=== PATIENT | female | born 1960 | race Caucasian/White ===

== ENCOUNTER 2016-03-15 13:13 | Emergency (ER) | payer OTHER, SELFPAY ==
[2016-03-15] MEDS ORDERED: Sodium Chloride 0.9% 1000 ML 1,000 ML IV STA (14:07)
[2016-03-15] MEDS ORDERED: Zofran 4 MG/2 ML VIAL IV ONE (14:07)
[2016-03-15 14:15] LABS: Collection Type CLEAN CATCH
[2016-03-15] MEDS ORDERED: Zofran 4 MG/2 ML VIAL ONE (14:15)
[2016-03-15] MEDS ORDERED: Sodium Chloride 0.9% 1000 ML 1,000 ML ONE (14:15)
--- NOTE | 2016-03-15 14:15 | ERPHSYRPT ---
- History of Present Illness Time Seen by Provider: 03/15/16 13:20 Historian: patient Exam Limitations: clinical condition Patient Subjective Stated Complaint: RIGHT SIDED ABD PAIN AND FLANK PAIN. BEEN GOING ON FOR ABOUT 3 MONTHS. WHEN PT STANDS PAIN SUBSIDES. Triage Nursing Assessment: ALERT X 3, BELLY TENDER WITGH PAPILATION ON RIGHT SIDE. Physician History: PATIENT COMPLAINS OF RIGHT LATERAL ABDOMINAL PAINS FOR 3 MONTHS, OCCASIONAL NAUSEA. HAD NORMAL ABDOMINAL PELVIC CT SCAN AT [facility] 1 MONTH AGO. DENIES EMESIS, FEVER, OR DIARRHEA. PATIENT IS SCHEDULED FOR COLONOSCOPY LATER THIS MONTH. Timing/Duration: other (MONTHS) Quality: sharpness Abdominal Pain Onset Location: other (RIGHT LATERAL ABDOMINAL PAIN) Severity of Pain-Max: moderate Severity of Pain-Current: moderate Modifying Factors: Improves With: nothing Associated Symptoms: nausea Previous symptoms: same symptoms as today (DURATION 3 MONTHS) Hx Tetanus, Diphtheria Vaccination/Date Given: Yes (2015) Hx Influenza Vaccination/Date Given: Yes (2015) Hx Pneumococcal Vaccination/Date Given: No Immunizations Up to Date: Yes - Review of Systems Constitutional: No Fever, No Chills Eyes: No Symptoms Ears, Nose, & Throat: No Symptoms Respiratory: No Symptoms, No Cough, No Dyspnea Cardiac: No Symptoms, No Chest Pain, No Edema, No Syncope Abdominal/Gastrointestinal: Abdominal Pain (TENDERNESS RIGHT LATERAL ABDOMEN, NO PALPABLE MASSES OR REBOUND TENDERNESS), No Nausea, No Vomiting, No Diarrhea Genitourinary Symptoms: Other (THERE IS NO CVA TENDERNESS), No Dysuria Musculoskeletal: No Symptoms, No Back Pain, No Neck Pain Skin: No Rash Neurological: No Symptoms, No Dizziness, No Focal Weakness, No Sensory Changes Psychological: No Symptoms Endocrine: No Symptoms All Other Systems: Reviewed and Negative - Past Medical History Pertinent Past Medical History: Yes Neurological History: No Pertinent History Cardiac History: Hypertension Respiratory History: No Pertinent History Endocrine Medical History: Hypothyroidism Musculoskeletal History: Arthritis GI Medical History: No Pertinent History History: No Pertinent History Psycho-Social History: No Pertinent History Female Reproductive Disorders: No Pertinent History - Past Surgical History Past Surgical History: No - Social History Smoking Status: Current every day smoker How long have you smoked: 30 Drug Use: none Patient Lives Alone: Yes - Nursing Vital Signs Nursing Vital Signs: Initial Vital Signs Temperature 98.8 F Temperature Source Oral Pulse Rate 54 Respiratory Rate 16 Blood Pressure [Left Arm] 111/47 Pain Intensity 0 - Physical Exam General Appearance: no apparent distress, alert Eye Exam: PERRL/EOMI, eyes nml inspection Ears, Nose, Throat Exam: normal ENT inspection, pharynx normal, moist mucous membranes Neck Exam: normal inspection, non-tender, supple, full range of motion Respiratory Exam: normal breath sounds, lungs clear, No respiratory distress Cardiovascular Exam: regular rate/rhythm, normal heart sounds Gastrointestinal/Abdomen Exam: soft, normal bowel sounds, No tenderness (RIGHT LATERAL ABDOMEN, NO GUARDING OR REBOUND TENDERNESS), No mass Back Exam: normal inspection, normal range of motion, No CVA tenderness, No vertebral tenderness Extremity Exam: normal inspection, normal range of motion, pelvis stable Neurologic Exam: alert, oriented x 3, cooperative, normal mood/affect, nml cerebellar function, sensation nml, No motor deficits Skin Exam: normal color, warm, dry SpO2 Interpretation: normal SpO2: 95 Oxygen Delivery: Room Air Ordered Tests: Active Orders 24 hr Category Date Time Status Clean Catch Urine Specimen STAT Care 03/15/16 14:07 Active IV Insertion STAT Care 03/15/16 14:07 Active AMYLASE Stat Lab 03/15/16 14:15 Completed CBC W DIFF Stat Lab 03/15/16 14:15 Completed CMP Stat Lab 03/15/16 14:15 Completed LIPASE Stat Lab 03/15/16 14:15 Completed UA W/ MICROSCOPIC Stat Lab 03/15/16 14:08 Completed Medication Summary Generic Name Dose Route Start Last Admin Trade Name Freq PRN Reason Stop Dose Admin Sodium Chloride 1,000 mls @ 250 mls/hr 03/15/16 14:07 03/15/16 14:18 Sodium Chloride 0.9% 1000 Ml IV 03/15/16 18:06 250 mls/hr .Q4H STA Administration Discontinued Medications Generic Name Dose Route Start Last Admin Trade Name Freq PRN Reason Stop Dose Admin Sodium Chloride Confirm 03/15/16 14:15 Sodium Chloride 0.9% 1000 Ml Administered 03/15/16 14:16 Dose 1,000 mls @ ud .ROUTE .STK-MED ONE Ceftriaxone Sodium/Dextrose 50 mls @ 100 mls/hr 03/15/16 14:34 03/15/16 14:37 Rocephin 1 Gm-D5w 50 Ml Bag IV 03/15/16 15:03 100 mls/hr STAT ONE Administration Ceftriaxone Sodium/Dextrose Confirm 03/15/16 14:37 Rocephin 1 Gm-D5w 50 Ml Bag Administered 03/15/16 14:38 Dose 50 mls @ ud IV .STK-MED ONE Ondansetron HCl 4 mg 03/15/16 14:07 03/15/16 14:18 Zofran 4 Mg/2 Ml Vial IV 03/15/16 14:08 4 mg STAT ONE Administration Ondansetron HCl Confirm 03/15/16 14:15 Zofran 4 Mg/2 Ml Vial Administered 03/15/16 14:16 Dose 4 mg .ROUTE .STK-MED ONE Lab/Rad Data: Laboratory Result Diagrams 03/15/16 14:15 03/15/16 14:15 Laboratory Results 03/15/16 03/15/16 03/15/16 Range/Units 14:15 14:15 14:08 WBC 11.6 H (4.0-10.5) K/mm3 RBC 4.65 (4.1-5.4) M/mm3 Hgb 13.1 (12.0-16.0) gm/dl Hct 41.8 (35-47) % MCV 89.9 (78-100) fl MCH 28.2 (26-32) pg MCHC 31.3 L (32-36) g/dl RDW 14.6 H (11.5-14.0) % Plt Count 370 (150-450) K/mm3 MPV 10.4 H (6-9.5) fl Gran % 67.3 H (36.0-66.0) % Lymphocytes % 22.9 L (24.0-44.0) % Monocytes % 5.8 (0.0-12.0) % Eosinophils % 3.5 (0.00-5.0) % Basophils % 0.5 (0.0-0.4) % Basophils # 0.06 (0-0.4) Sodium 138 (136-145) mEq/L Potassium 4.1 (3.5-5.1) mEq/L Chloride 102 (98-107) mEq/L Carbon Dioxide 27.5 (21-32) mEq/L Anion Gap 12.6 (5-15) MEQ/L BUN 9 (9-20) mg/dL Creatinine 0.94 (0.55-1.30) mg/dl Estimated GFR > 60 ML/MIN Glucose 92 (70-110) MG/DL Calcium 8.7 (8.5-10.1) mg/dL Total Bilirubin 0.3 (0.2-1.0) mg/dL AST 10 L (15-37) U/L ALT 11 L (12-78) U/L Alkaline Phosphatase 137 H (46-116) U/L Serum Total Protein 7.7 (6.4-8.2) gm/dL Albumin 3.3 L (3.4-5.0) g/dL Amylase 55 (25-115) U/L Lipase 120 (73-393) U/L Ur Collection Type CLEAN CATCH Urine Color YELLOW (YELLOW) Urine Appearance SLIGHTLY CLOUDY (CLEAR) Urine pH 7.0 (5-6) Ur Specific [place] 1.015 (1.005-1.025) Urine Protein NEGATIVE (Negative) Urine Glucose (UA) NEGATIVE (NEGATIVE) mg/dL Urine Ketones NEGATIVE (NEGATIVE) Urine Nitrite NEGATIVE (NEGATIVE) Urine Bilirubin NEGATIVE (NEGATIVE) Urine Urobilinogen 0.2 (0-1) mg/dL Urine WBC (Auto) MODERATE (NEGATIVE) Urine RBC (Auto) TRACE-LYSED (0-5) Chaz/ul Urine Microscopic RBC 0-2 (0-2) /HPF Urine Microscopic WBC 15-25 (0-5) /HPF Ur Epithelial Cells MANY (FEW) /HPF Urine Bacteria MANY (NEGATIVE) /HPF Specimen Received 03/15/16 1400 - Progress Progress: pain not gone completely Progress Note: 03/15/16 14:14 PATIENT ADMINISTERED IV NORMAL SALINE 250ML/HR, ZOFRAN 4MG, TORADOL 30MG IV 03/15/16 15:30 ROCEPHIN 1GM IVPB FOR TX OF URINARY TRACT INFECTION Counseled pt/family regarding: lab results, diagnosis, need for follow-up - Departure Time of Disposition: 15:40 Departure Disposition: Home Clinical Impression: URINARY TRACT INFECTION Condition: Stable Critical Care Time: No Additional Instructions: ANTIBIOTIC BACTRIM DS TWICE DAILY FOR 10 DAYS. PYRIDIUM 100MG AFTER MEALS FOR 2 DAYS. ULTRAM 50MG EVERY 4 HOURS FOR PAIN. CONSULT YOUR FAMILY PHYSICIAN FOR EVALUATION IN 1 WEEK. Prescriptions: Phenazopyridine HCl [Pyridium] 100 mg PO AC #6 tablet Sulfamethoxazole/Trimethoprim [Bactrim Ds Tablet] 1 each PO BID #20 tablet Tramadol HCl 50 mg [Ultram 50 mg] 50 mg PO Q4-6HPRN PRN #15 tablet PRN Reason: Pain
[2016-03-15 14:16] LABS: Bacteria MANY /HPF (NEGATIVE); COMPLETE URINE MICROSCOPIC? YES; Epithelial Cells MANY /HPF (FEW); WBC 15-25 /HPF (0-5)
[2016-03-15 14:27] LABS: BASOPHIL % 0.5 % (0.0-0.4); Eosinophil % 3.5 % (0.00-5.0); Granulocytes % 67.3 % (36.0-66.0); Lymphocytes % 22.9 % (24.0-44.0); Mean Cell Volume 89.9 fl (78-100); Mean Corpuscular Hemoglobin 28.2 pg (26-32); Mean Platelet Volume 10.4 fl (6-9.5); Monocytes % 5.8 % (0.0-12.0); Platelet Count 370 K/mm3 (150-450); Red Blood Count 4.65 M/mm3 (4.1-5.4); Red Cell Distribution Width 14.6 % (11.5-14.0); White Blood Count 11.6 K/mm3 (4.0-10.5)
[2016-03-15] MEDS ORDERED: ROCEPHIN 1 Gm-D5w 50 ml Bag** 50 ML IV ONE ×2 (14:34→14:37)
[2016-03-15 14:49] LABS: ALBUMIN 3.3 g/dL (3.4-5.0); ALKALINE PHOSPHATASE 137 U/L (46-116); ANION GAP 12.6 MEQ/L (5-15); BILIRUBIN,TOTAL 0.3 mg/dL (0.2-1.0); BLOOD UREA NITROGEN 9 mg/dL (9-20); CHLORIDE 102 mEq/L (98-107); Carbon Dioxide 27.5 mEq/L (21-32); Glucose 92 MG/DL (70-110); LIPASE 120 U/L (73-393); Potassium 4.1 mEq/L (3.5-5.1); SGOT/AST 10 U/L (15-37); SGPT/ALT 11 U/L (12-78); SODIUM 138 mEq/L (136-145); Total Protein 7.7 gm/dL (6.4-8.2)
[2016-03-15 15:43] VITALS: BP 134/70; PULSE 78; O2SAT 100
== END 2016-03-15 15:43 | disposition home or self-care (01) ==
LOC: ED 13:13
DX: N39.0 Urinary tract infection, site not specified (principal); R10.9 Unspecified abdominal pain; R11.0 Nausea
CPT/HCPCS: 36000; 36415; 80053; 81000; 82150; 83690; 85025; 96360; 96361; 96365; 96374; 99283; J0696; J2405

== ENCOUNTER 2016-04-20 10:16 | Day surgery (SDC) | payer OTHER ==
--- NOTE | 2016-04-19 08:08 | HP ---
DATE OF SURGERY: 04/20/2016 ADMISSION DIAGNOSIS: Chronic constipation. ANTICIPATED PROCEDURE: HISTORY OF PRESENT ILLNESS: A 55 year-old with no colonoscopy to date. Right lower quadrant pain. PAST MEDICAL HISTORY: ALLERGIES: PENICILLIN, SULFA. MEDICATIONS: Blood pressure, thyroid. PAST SURGICAL HISTORY: None. SOCIAL HISTORY: One pack per day. ETOH negative. FAMILY HISTORY: Negative. REVIEW OF SYSTEMS: Chronic right lower quadrant pain. PHYSICAL EXAMINATION: VITAL SIGNS: Normal. CHEST: Clear. COR: Regular. ABDOMEN: No palpable organomegaly or mass. IMPRESSION: Colonoscopy for constipation and change in bowel habit.
[~2016-04-20 10:16] MED LIST: DEMEROL 50 MG IV ONE; Sodium Chloride 0.9% 1000 ML 1,000 ML IV SCH; VERSED 5 MG/5 ML IV ONE
[2016-04-20] MEDS ORDERED: Sodium Chloride 0.9% 1000 ML 1,000 ML ONE (10:20)
[2016-04-20] MEDS ORDERED: TYLENOL EXTRA STRENGTH 500 MG PO PRN (11:57)
[2016-04-20] MEDS ORDERED: Lactated Ringers 1,000 ML IV ONE (14:40)
[2016-04-20 15:47] VITALS: BP 112/59; PULSE 62; O2SAT 93
--- NOTE | 2016-04-21 08:09 | OP ---
SURGERY DATE: 04/20/16 SURGERY TIME: 1340 PREOPERATIVE DIAGNOSIS: 1. SCREENING. 2. CONSTIPATION. 3. RIGHT LOWER QUADRANT DISCOMFORT. POSTOPERATIVE DIAGNOSIS: 1. GROSSLY NORMAL. PROCEDURE: 1. Colonoscopy complete to cecum. SURGEON: Gordon Nova M.D. ANESTHESIA: IV sedation. PREP: 6/9. COMPLICATIONS: None. CONDITION: Stable. INDICATION: 55 y/o requiring colonoscopy. Has constipation and some right lower quadrant discomfort. Has never had a colonoscopic examination. Presents for screening. OPERATIVE PROCEDURE: Taken to endoscopy suite. Left lateral decubitus position. After suitable IV sedation was titrated and oximetry was kept over 90%, scope advanced to the cecum. Base of the cecum satisfactory. Ascending, hepatic, transverse, splenic, descending, sigmoid, rectum, and anus satisfactory. There was some stool and the prep was 6/9. It was grossly normal. Not a perfect exam with the prep. PLAN: Follow-up 5 years.
== END 2016-04-20 16:02 | disposition home or self-care (01) ==
LOC: SDC 10:16
PROVIDERS: ATTEND Surgery
PROC: 0DJD8ZZ Inspection of Lower Intestinal Tract, Via Natural or Artificial Opening Endoscopic (ICD-10-PCS; principal; 2016-04-20)
DX: Z12.11 Encounter for screening for malignant neoplasm of colon (principal); K59.00 Constipation, unspecified; R10.31 Right lower quadrant pain
CPT/HCPCS: J2175; J2250

== ENCOUNTER 2016-05-02 13:35 | Emergency (ER) | payer OTHER, SELFPAY ==
[2016-05-02] MEDS ORDERED: DUONEB 0.5-3 MG/3 ml Neb IH ONE ×2 (13:52→14:22)
--- NOTE | 2016-05-02 13:58 | ERPHSYRPT ---
- History of Present Illness Time Seen by Provider: 05/02/16 13:43 Source: patient Patient Subjective Stated Complaint: PT REPORTS HAVING A COLOSTOMY 2 WKS AGO- SINCE THEN HAS LOW RIGHT ABD PAIN ET SOB-DENIES CHANGES IN S/S-STATES THAT SHE HAS A PRODUCTIVE COUGH Triage Nursing Assessment: PT PINK WARM ET DRY-TALKATIVE WITH NO RETRACTIONS ET NO DIFFICULTY NOTED-EXPATORY WHEEZES NOTED TO RIGHT LUNG Physician History: CC: cough hx: 55 y/o patient of [facility]. She is a smoker. She has cough, some wheezing, congestion. She had recent colonoscopy last week per Dr Nova. She has chronic RLQ abd pain. She has appt at [facility]'s Sunday. Came today due to her cough. No fever or chills. She has malaise. Timing/Duration: day(s) (few) Allergies/Adverse Reactions: penicillin G Allergy (Intermediate, Verified 05/02/16 13:47) CAN'T MOVE Sulfa (Sulfonamide Antibiotics) Allergy (Intermediate, Verified 05/02/16 13:47) Hives Home Medications: Bisoprolol Fumarate/Hctz [Bisoprolol-Hctz 10-6.25 mg Tab] 1 each PO DAILY [History] Levothyroxine Sodium 50 Mcg [Synthroid 50 Mcg] 50 mcg PO DAILY 05/02/16 [ History] Hx Tetanus, Diphtheria Vaccination/Date Given: Yes (2015) Hx Influenza Vaccination/Date Given: Yes (2015) Hx Pneumococcal Vaccination/Date Given: No Immunizations Up to Date: Yes - Review of Systems Constitutional: Malaise, No Fever, No Chills Eyes: No Symptoms Respiratory: Cough Cardiac: No Chest Pain Abdominal/Gastrointestinal: Abdominal Pain (chronic RLQ), No Nausea, No Vomiting Skin: No Rash Neurological: No Headache - Past Medical History Pertinent Past Medical History: Yes Neurological History: No Pertinent History ENT History: No Pertinent History Cardiac History: Hypertension Respiratory History: No Pertinent History Endocrine Medical History: Hypothyroidism Musculoskeletal History: Arthritis GI Medical History: Ulcer History: No Pertinent History Psycho-Social History: No Pertinent History Female Reproductive Disorders: No Pertinent History - Past Surgical History Past Surgical History: No Neuro Surgical History: No Pertinent History Cardiac: No Pertinent History Respiratory: No Pertinent History Gastrointestinal: No Pertinent History Genitourinary: No Pertinent History Musculoskeletal: No Pertinent History Female Surgical History: Other Other Surgical History: bartholins cyst excision - Social History Smoking Status: Current every day smoker How long have you smoked: 30 Exposure to second hand smoke: Yes Drug Use: none Patient Lives Alone: No - Nursing Vital Signs Nursing Vital Signs: Initial Vital Signs Temperature 98.2 F Temperature Source Oral Pulse Rate 59 Respiratory Rate 16 Blood Pressure [Right Arm] 156/93 Pain Intensity 7 - Physical Exam General Appearance: alert Eye Exam: PERRL/EOMI Ears, Nose, Throat Exam: normal ENT inspection, moist mucous membranes Neck Exam: normal inspection, non-tender, supple Respiratory Exam: rhonchi, wheezing (scattered) Cardiovascular Exam: regular rate/rhythm Gastrointestinal/Abdomen Exam: soft, other (mild discomfort, no point tenderness , no mass), No distention Back Exam: normal inspection Extremity Exam: normal inspection, normal range of motion Neurologic Exam: alert, oriented x 3, cooperative Skin Exam: warm, dry, No rash SpO2 Interpretation: normal SpO2: 96 Oxygen Delivery: Room Air - Course Nursing assessment & vital signs reviewed: Yes - Radiology Exams cxr X-ray Interpretation: Teleradiologist Report, Negative abd X-ray Interpretation: Teleradiologist Report, Negative Ordered Tests: Active Orders 24 hr Category Date Time Status ABDOMEN 2 VIEW Stat Exams 05/02/16 13:53 Taken CHEST 2 VIEWS (PA AND LAT) Stat Exams 05/02/16 13:52 Taken Respiratory Nebulizer STAT RT 05/02/16 13:53 Completed Medication Summary Discontinued Medications Generic Name Dose Route Start Last Admin Trade Name Freq PRN Reason Stop Dose Admin Albuterol/Ipratropium 3 ml 05/02/16 13:52 05/02/16 14:26 Duoneb 0.5-3 Mg/3 Ml Neb IH 05/02/16 13:53 3 ml STAT ONE Administration Albuterol/Ipratropium Confirm 05/02/16 14:22 Duoneb 0.5-3 Mg/3 Ml Neb Administered 05/02/16 14:23 Dose 3 ml IH .STK-MED ONE - Progress Progress Note: 05/02/16 14:33 PT stable. Advised smoking cessation. Rx for asthmatic bronchitis. She will follow up at [facility]. Counseled pt/family regarding: diagnosis, need for follow-up, rad results, smoking cessation - Departure Time of Disposition: 14:33 Departure Disposition: Home Clinical Impression: Acute asthmatic bronchitis Condition: Stable Critical Care Time: No Referrals: NIC FULLER, BUSINESS ANALYST INTERN [Primary Care Provider] - Instructions: Quit Smoking, Bronchitis Additional Instructions: UPPER RESPIRATORY INFECTIONS 1. The signs and symptoms of a cold may last up to 10 days. These illnesses are due to viruses which are not treatable with antibiotics. 2. The following suggestions can aid in recovery and to minimize symptoms: A. Increase fluid intake. B. Acetaminophen or Ibuprofen as directed. C. Avoid smoking environments as this will increase the risk of developing pneumonia. D. For children, may use a cool mist vaporizer in the child's room. 3. Contact your Family Physician if you note: A. Persisten fever >103 for more than 3 days B. Breathing difficulty C. Productive cough of yellow/green sputum D. Illness greater than 7 days E. Persistent vomiting F. Stiff neck Rx prednisone. Rx albuterol. Rx doxycycline. Keep appointment Sunday at [facility]. Prescriptions: Albuterol Sulfate [Albuterol Sulfate Hfa] 2 puff IH Q4-6HPRN PRN #1 [email or web address] PRN Reason: cough or wheeze Doxycycline Hyclate [Vibramycin] 1 cap PO BID #20 capsule Prednisone 20 mg [Deltasone 20 mg] 2 tab PO DAILY #10 tablet
--- NOTE | 2016-05-02 14:34 | XRAY ---
Indication: Abdominal pain. Post-colonoscopy. Comparison: None 2 views of the abdomen nonacute and nonobstructed. No free air. Solid organs and osseous structures unremarkable.
--- NOTE | 2016-05-02 14:37 | XRAY ---
Indication: Cough. Abdominal pain. Post colonoscopy. Comparison: None PA/lateral chest demonstrates normal heart, lungs, and bony thorax.
[2016-05-02 14:41] VITALS: BP 139/76; PULSE 55; O2SAT 95
== END 2016-05-02 14:47 | disposition home or self-care (01) ==
LOC: ED 13:35
DX: J45.909 Unspecified asthma, uncomplicated (principal); R05 Cough; R53.81 Other malaise; F17.200 Nicotine dependence, unspecified, uncomplicated
CPT/HCPCS: 71020; 74020; 94640; 99284; A9270-GY

== ENCOUNTER 2017-09-28 18:46 | Emergency (ER) | payer OTHER, SELFPAY ==
--- NOTE | 2017-09-28 19:49 | ERPHSYRPT ---
- History of Present Illness Time Seen by Provider: 09/28/17 19:43 Source: patient Exam Limitations: no limitations Patient Subjective Stated Complaint: states has increased swelling to bilat lower legs. also having pain in left shoulder, left lower abd and right hip. Triage Nursing Assessment: ambulated to room per self. skin w/d, color normal, resp easy. 2+ edema noted to lower legs. denies any injury Physician History: The patient is a 57-year-old obese female with a friend complaining that her right hip has been hurting more so for the past 3 days. Today when she got up this afternoon, it hurt more than it has in the past. The pain has lessened this evening. The pain actually started before last June when she had a hysterectomy. She thought the hysterectomy would help her pain. She has other complaints that are already being addressed by her senior java programmer analyst. She has been retaining fluid with swelling of her lower legs. She called her senior java programmer analyst this morning and was told to increase her "water pills". She will do that this evening. She denies fever or chills. She denies nausea or vomiting. She denies trauma. She has been prescribed metformin but does not take it routinely. Her past medical history is significant for congestive heart failure , hypertension, hypothyroidism, and diabetes. Timing/Duration: day(s) (3), worse Severity: moderate Modifying Factors: Improves With: movement Associated Symptoms: abdominal pain Allergies/Adverse Reactions: penicillin G Allergy (Intermediate, Verified 09/28/17 19:02) CAN'T MOVE Sulfa (Sulfonamide Antibiotics) Allergy (Intermediate, Verified 09/28/17 19:02) Hives Home Medications: Bisoprolol/Hydrochlorothiazide [Bisoprolol-Hctz 10-6.25 mg Tab] 1 each PO DAILY 05/02/16 [History] Levothyroxine Sodium 50 Mcg [Synthroid 50 Mcg] 50 mcg PO DAILY 05/02/16 [ History] Carvedilol 3.125 mg [Coreg 3.125 MG] 3.125 mg PO BID 09/28/17 [History] Lisinopril [Zestril] 5 mg PO DAILY 09/28/17 [History] Hx Tetanus, Diphtheria Vaccination/Date Given: Yes Hx Influenza Vaccination/Date Given: Yes Hx Pneumococcal Vaccination/Date Given: No - Review of Systems Constitutional: No Fever, No Chills Eyes: No Symptoms Ears, Nose, & Throat: No Symptoms Respiratory: No Cough, No Dyspnea Cardiac: Edema, No Chest Pain, No Syncope Abdominal/Gastrointestinal: Abdominal Pain, No Nausea, No Vomiting, No Diarrhea Genitourinary Symptoms: No Dysuria Musculoskeletal: Joint Pain Skin: No Rash Neurological: No Dizziness, No Focal Weakness, No Sensory Changes Psychological: No Symptoms Endocrine: No Symptoms Hematologic/Lymphatic: No Symptoms Immunological/Allergic: No Symptoms All Other Systems: Reviewed and Negative - Past Medical History Pertinent Past Medical History: Yes Neurological History: No Pertinent History ENT History: No Pertinent History Cardiac History: Hypertension Respiratory History: No Pertinent History Endocrine Medical History: Hypothyroidism Musculoskeletal History: Arthritis GI Medical History: Ulcer History: No Pertinent History Psycho-Social History: No Pertinent History Female Reproductive Disorders: No Pertinent History - Past Surgical History Past Surgical History: Yes Neuro Surgical History: No Pertinent History Cardiac: No Pertinent History Respiratory: No Pertinent History Gastrointestinal: No Pertinent History Genitourinary: No Pertinent History Musculoskeletal: No Pertinent History Female Surgical History: Hysterectomy, Other Other Surgical History: bartholins cyst excision - Social History Smoking Status: Current every day smoker How long have you smoked: 42 Exposure to second hand smoke: Yes Drug Use: none Patient Lives Alone: No - Female History Hx Now: No - Nursing Vital Signs Nursing Vital Signs: Initial Vital Signs Temperature 97.7 F 09/28/17 18:51 Pulse Rate 64 09/28/17 18:51 Respiratory Rate 20 09/28/17 18:51 Blood Pressure 116/79 09/28/17 18:51 Pain Scale Pain Intensity 10 - Physical Exam General Appearance: no apparent distress, alert Eye Exam: PERRL/EOMI, eyes nml inspection Ears, Nose, Throat Exam: normal ENT inspection, TMs normal, pharynx normal, moist mucous membranes Neck Exam: normal inspection, non-tender, supple, full range of motion Respiratory Exam: normal breath sounds, lungs clear, No respiratory distress Cardiovascular Exam: regular rate/rhythm, normal heart sounds, normal peripheral pulses Gastrointestinal/Abdomen Exam: tenderness (RLQ, right flank) Pelvic Exam: not done Rectal Exam: not done Back Exam: normal inspection, normal range of motion, No CVA tenderness, No vertebral tenderness Extremity Exam: pedal edema Neurologic Exam: alert, oriented x 3, cooperative, normal mood/affect, nml cerebellar function, nml station & gait, sensation nml, No motor deficits Skin Exam: normal color, warm, dry, No rash Lymphatic Exam: No adenopathy SpO2 Interpretation: normal Oxygen Delivery: Room Air - Radiology Exams Abdomen X-ray Interpretation: Reviewed by me, Teleradiologist Report (per Dr Frank), Negative, Other (moderate scattered colonic fecal debris) Right Hip X-ray Interpretation: Reviewed by me, Teleradiologist Report (per Dr Frank), No Fracture, No Subluxation, Other (tiny right femur head bone island.) - CT Exams Abdomen/Pelvis CT Interpretation: Tele-radiologist Report (per Dr Lagunas), Normal Appendix, Other (bilateral symmetric sacroiliitis; moderate amount of retained colonic stool.) Ordered Tests: Active Orders 24 hr Category Date Time Status Clean Catch Urine Specimen STAT Care 09/28/17 19:51 Active ABDOMEN AND PELVIS W/0 CONTRAS [CT] Stat Exams 09/28/17 22:40 Taken HIP UNI (2V) INCL PEL IF DONE Stat Exams 09/28/17 19:52 Completed KUB Stat Exams 09/28/17 19:51 Completed CBC W DIFF Stat Lab 09/28/17 20:00 Completed CMP Stat Lab 09/28/17 20:00 Completed LIPASE Stat Lab 09/28/17 20:00 Completed UA W/RFX UR CULTURE Stat Lab 09/28/17 21:59 Completed Medication Summary Discontinued Medications Generic Name Dose Route Start Last Admin Trade Name Freq PRN Reason Stop Dose Admin Ketorolac Tromethamine 60 mg 09/28/17 19:52 09/28/17 21:03 Toradol 30 Mg Injection IM 09/28/17 19:53 30 mg STAT ONE Administration Ketorolac Tromethamine Confirm 09/28/17 21:01 Toradol 30 Mg Injection Administered 09/28/17 21:02 Dose 30 mg .ROUTE [email or web address] Lab/Rad Data: Laboratory Result Diagrams 09/28/17 20:00 09/28/17 20:00 Laboratory Results 09/28/17 09/28/17 09/28/17 Range/Units 21:59 20:00 20:00 WBC 11.5 H (4.0-10.5) K/mm3 RBC 4.54 (4.1-5.4) M/mm3 Hgb 13.3 (12.0-16.0) gm/dl Hct 40.8 (35-47) % MCV 89.9 (78-100) fl MCH 29.3 (26-32) pg MCHC 32.6 (32-36) g/dl RDW 14.8 H (11.5-14.0) % Plt Count 359 (150-450) K/mm3 MPV 10.7 H (6-9.5) fl Gran % 59.3 (36.0-66.0) % Eos # (Auto) 0.50 (0-0.5) Absolute Lymphs (auto) 3.20 (1.0-4.6) Absolute Monos (auto) 0.91 (0.0-1.3) Lymphocytes % 27.9 (24.0-44.0) % Monocytes % 7.9 (0.0-12.0) % Eosinophils % 4.4 (0.00-5.0) % Basophils % 0.5 (0.0-0.4) % Absolute Granulocytes 6.78 (1.4-6.9) Basophils # 0.06 (0-0.4) Sodium 138 (137-145) mmol/L Potassium 4.1 (3.5-5.1) mmol/L Chloride 103 (98-107) mmol/L Carbon Dioxide 27 (22-30) mmol/L Anion Gap 12.3 (5-15) MEQ/L BUN 13 (7-17) mg/dL Creatinine 0.89 (0.52-1.04) mg/dL Estimated GFR > 60.0 ML/MIN Glucose 97 (74-106) mg/dL Calcium 8.8 (8.4-10.2) mg/dL Total Bilirubin 0.20 (0.2-1.3) mg/dL AST 11 L (14-36) U/L ALT 11 (0-35) U/L Alkaline Phosphatase 138 H (38-126) U/L Serum Total Protein 6.9 (6.3-8.2) g/dL Albumin 3.6 (3.5-5.0) g/dL Lipase 54 (23-300) U/L Ur Collection Type VOID Urine Color YELLOW (YELLOW) Urine Appearance CLEAR (CLEAR) Urine pH 6.5 (5-6) Ur Specific [place] 1.015 (1.005-1.025) Urine Protein NEGATIVE (Negative) Urine Ketones NEGATIVE (NEGATIVE) Urine Blood NEGATIVE (0-5) Chaz/ul Urine Nitrite NEGATIVE (NEGATIVE) Urine Bilirubin NEGATIVE (NEGATIVE) Urine Urobilinogen NORMAL (0-1) mg/dL Ur Leukocyte Esterase NEGATIVE (NEGATIVE) Urine Culture Reflexed NO (NO) Urine Glucose NEGATIVE (NEGATIVE) mg/dL Specimen Received 09-280 - Progress Progress: improved Counseled pt/family regarding: lab results, diagnosis, rad results - Departure Time of Disposition: 00:27 Departure Disposition: Home Clinical Impression: Constipation, Bilateral sacroiliitis Condition: Stable Critical Care Time: No Referrals: NIC FULLER, [employer] [Primary Care Provider] - Additional Instructions: You had a CT scan of her abdomen and pelvis that showed constipation and bilateral sacroiliitis. You were given Toradol 60 mg by IM in the ER. Stay well hydrated. You were given tramadol 1 tablet every 4-6 hours as needed. Follow-up with your primary medical doctor as needed. Prescriptions: Tramadol HCl 50 mg PO Q4-6HPRN PRN #10 tablet PRN Reason: Pain
[2017-09-28] MEDS ORDERED: TORAdol 30 mg Injection IM ONE (19:52)
[2017-09-28 20:49] LABS: BASOPHIL % 0.5 % (0.0-0.4); Basophil (Absolute #) 0.06 (0-0.4); Eosinophil % 4.4 % (0.00-5.0); Granulocyte Absolute (ANC) 6.78 (1.4-6.9); Granulocytes % 59.3 % (36.0-66.0); Hematocrit 40.8 % (35-47); Hemoglobin 13.3 gm/dl (12.0-16.0); Lymphocytes % 27.9 % (24.0-44.0); Mean Cell Volume 89.9 fl (78-100); Mean Corpuscular Hemoglobin 29.3 pg (26-32); Mean Corpuscular Hgb Concent. 32.6 g/dl (32-36); Mean Platelet Volume 10.7 fl (6-9.5); Monocyte (Absolute #) 0.91 (0.0-1.3); Monocytes % 7.9 % (0.0-12.0); Platelet Count 359 K/mm3 (150-450); Red Blood Count 4.54 M/mm3 (4.1-5.4); Red Cell Distribution Width 14.8 % (11.5-14.0); White Blood Count 11.5 K/mm3 (4.0-10.5)
[2017-09-28] MEDS ORDERED: TORAdol 30 mg Injection ONE (21:01)
[2017-09-28 21:06] LABS: ALBUMIN 3.6 g/dL (3.5-5.0); ALKALINE PHOSPHATASE 138 U/L (38-126); ANION GAP 12.3 MEQ/L (5-15); BLOOD UREA NITROGEN 13 mg/dL (7-17); CHLORIDE 103 mmol/L (98-107); Calcium 8.8 mg/dL (8.4-10.2); Carbon Dioxide 27 mmol/L (22-30); Creatinine 1 0.89 mg/dL (0.52-1.04); Glucose 97 mg/dL (74-106); LIPASE 54 U/L (23-300); Potassium 4.1 mmol/L (3.5-5.1); SGOT/AST 11 U/L (14-36); SGPT/ALT 11 U/L (0-35); SODIUM 138 mmol/L (137-145); Total Protein 6.9 g/dL (6.3-8.2)
[2017-09-28 22:13] LABS: Appearance CLEAR (CLEAR); Bilirubin NEGATIVE (NEGATIVE); Blood NEGATIVE Ery/ul (0-5); Glucose NEGATIVE (NEGATIVE); Ketones NEGATIVE (NEGATIVE); Leukocyte Esterase NEGATIVE (NEGATIVE); Nitrite NEGATIVE (NEGATIVE); Ph 6.5 (5-6); Protein,Urine Dip NEGATIVE (Negative); Specific Gravity 1.015 (1.005-1.025); Urobilinogen NORMAL mg/dL (0-1)
--- NOTE | 2017-09-28 22:46 | XRAY ---
Indication: Abdomen pain and chronic constipation. Comparison: None KUB nonacute and nonobstructed with moderate scattered colonic fecal debris predominantly in the right hemicolon. Solid organs and osseous structures unremarkable.
--- NOTE | 2017-09-28 22:46 | XRAY ---
Indication: Right hip pain. Comparison: None AP pelvis and 2 views of the right hip demonstrates minimal pelvic vascular calcifications and tiny right femur head bone island. No other bony, articular, or soft tissue abnormalities.
[2017-09-29 00:53] VITALS: BP 149/77; PULSE 58; O2SAT 97
--- NOTE | 2017-09-29 08:55 | XRAY ---
Indication: Right flank and right hip pain. Elevated WBC. Multiple contiguous axial images obtained through the abdomen and pelvis without contrast as ordered. Comparison: April 07, 2016. Lung bases are clear. Heart is not enlarged. Stable small hiatal hernia Noncontrasted stomach and bowel loops appear nonobstructed. Normal appendix. Intervertebral hysterectomy. No free fluid/air. Remaining liver, gallbladder, pancreas, spleen, adrenal glands, kidneys, ureters, and bladder appear unremarkable for noncontrast exam. Again mild aortoiliac calcifications without AAA. Osseous structures intact. Stable bilateral SI osteitis condensans ilii. No ventral or inguinal hernias. Impression: 1. Stable small hiatal hernia and SI osteitis condensans ilii. 2. No new or acute intra-abdominal/pelvic abnormalities on this noncontrast exam. Comment: Preliminary interpretation was made by C. No critical discrepancy. CTDI 23.68
== END 2017-09-29 00:50 | disposition home or self-care (01) ==
LOC: ED 18:46
DX: K59.00 Constipation, unspecified (principal); M46.1 Sacroiliitis, not elsewhere classified; M25.551 Pain in right hip; M79.89 Other specified soft tissue disorders; Z79.899 Other long term (current) drug therapy
CPT/HCPCS: 36000; 36415; 73502; 74018; 74176; 80053; 81002; 83690; 85025; 96372; 99284; J1885

== ENCOUNTER 2018-03-27 11:19 | Emergency (ER) | payer OTHER ==
--- NOTE | 2018-03-27 11:22 | ERPHSYRPT ---
- History of Present Illness Time Seen by Provider: 03/27/18 11:21 Source: patient Exam Limitations: no limitations Physician History: 57 y/o white female presents with left toe pain. present for a few days but better on keflex antibx and soaking foot in warm epsom salts. her biggest issue is the nausea and diarrhea and just feeling poorly for last 2 days. pt states sx began after each dose of keflex. sx improved when she skipped doses. no rash no cp, and soa. Method of Injury: other (pt with significant left bunion) Severity of Pain-Max: mild Severity of Pain-Current: mild Modifying Factors: Improves With: movement Allergies/Adverse Reactions: penicillin G Allergy (Intermediate, Verified 03/27/18 11:30) CAN'T MOVE Sulfa (Sulfonamide Antibiotics) Allergy (Intermediate, Verified 03/27/18 11:30) Hives Home Medications: Bisoprolol/Hydrochlorothiazide [Bisoprolol-Hctz 10-6.25 mg Tab] 1 each PO DAILY 05/02/16 [History] Levothyroxine Sodium 50 Mcg [Synthroid 50 Mcg] 50 mcg PO DAILY 05/02/16 [ History] Carvedilol 3.125 mg [Coreg 3.125 MG] 3.125 mg PO BID 09/28/17 [History] Lisinopril [Zestril] 5 mg PO DAILY 09/28/17 [History] Hx Tetanus, Diphtheria Vaccination/Date Given: Yes Hx Influenza Vaccination/Date Given: Yes Hx Pneumococcal Vaccination/Date Given: No - Review of Systems Constitutional: No Symptoms Eyes: No Symptoms Ears, Nose, & Throat: No Symptoms Respiratory: No Symptoms Cardiac: No Symptoms Abdominal/Gastrointestinal: Nausea, Vomiting, Diarrhea Genitourinary Symptoms: No Symptoms Musculoskeletal: Joint Pain (tender 2nd toe) Skin: No Symptoms Neurological: No Symptoms Psychological: No Symptoms Endocrine: No Symptoms Hematologic/Lymphatic: No Symptoms Immunological/Allergic: No Symptoms All Other Systems: Reviewed and Negative - Past Medical History Pertinent Past Medical History: Yes Neurological History: No Pertinent History ENT History: No Pertinent History Cardiac History: Hypertension Respiratory History: No Pertinent History Endocrine Medical History: Hypothyroidism Musculoskeletal History: Arthritis GI Medical History: Ulcer History: No Pertinent History Psycho-Social History: No Pertinent History Female Reproductive Disorders: No Pertinent History - Past Surgical History Past Surgical History: Yes Neuro Surgical History: No Pertinent History Cardiac: No Pertinent History Respiratory: No Pertinent History Gastrointestinal: No Pertinent History Genitourinary: No Pertinent History Musculoskeletal: No Pertinent History Female Surgical History: Hysterectomy, Other Other Surgical History: bartholins cyst excision - Social History Smoking Status: Current every day smoker How long have you smoked: 42 Exposure to second hand smoke: Yes Drug Use: none Patient Lives Alone: No - Nursing Vital Signs Nursing Vital Signs: Initial Vital Signs Temperature 97.9 F 03/27/18 11:23 Pulse Rate 73 03/27/18 11:23 Blood Pressure 163/98 03/27/18 11:23 O2 Sat by Pulse Oximetry 100 03/27/18 11:23 Pain Scale Pain Intensity [Left Toe] 8 Pain Intensity 8 - Physical Exam General Appearance: no apparent distress, alert, anxiety Eyes, Ears, Nose, Throat Exam: normal ENT inspection, moist mucous membranes Neck Exam: normal inspection, non-tender, supple, full range of motion Cardiovascular/Respiratory Exam: chest non-tender Gastrointestinal/Abdominal Exam: non-tender Back Exam: normal inspection, normal range of motion, No CVA tenderness, No vertebral tenderness Hips Exam: bilateral: non-tender, normal inspection, normal range of motion, no evidence of injury Legs Exam: bilateral leg: non-tender, normal inspection, normal range of motion , no evidence of injury Knees Exam: bilateral knee: non-tender, normal inspection, normal range of motion, no evidence of injury Ankle Exam: bilateral ankle: non-tender, normal inspection, normal range of motion, no evidence of injury Foot Exam: right foot: non-tender, normal inspection, left foot: normal range of motion, no evidence of injury, bone tenderness (left 2nd toe; left 1st toe bunion), soft tissue tenderness (2nd toe), other (no cellulitis, no prox streaking, no odor, no drainage and no redness) Neuro/Tendon Exam: normal sensation, normal motor functions, normal tendon functions Mental Status Exam: alert, oriented x 3, cooperative Skin Exam: normal color, warm, dry SpO2 Interpretation: normal O2 Delivery: Room Air - Course Nursing assessment & vital signs reviewed: Yes Ordered Tests: Active Orders 24 hr Category Date Time Status FOOT (MINIMUM 3 VIEWS) Stat Exams 03/27/18 11:38 Completed Lab/Rad Data: Laboratory Results 03/27/18 Range/Units 12:00 Influenza Type A Ag NEGATIVE (NEGATIVE) Influenza Type B Ag NEGATIVE (NEGATIVE) RSV (PCR) NEGATIVE (Negative) - Progress Progress: unchanged Progress Note: 03/27/18 13:00 xray left foot-no acute process. Counseled pt/family regarding: diagnosis, need for follow-up, rad results - Departure Time of Disposition: 13:01 Departure Disposition: Home Clinical Impression: Medication side effects, Gastritis Condition: Stable Critical Care Time: No Referrals: NIC FULLER NP [Primary Care Provider] - Additional Instructions: drink plenty of fluids. avoid fatty, greasy, spicy foods. follow up with primary doctor for further management. stop keflex. continue soaking left foot in warm epsom salts and soapy water. Prescriptions: Famotidine 20 mg [Pepcid 20 MG] 20 mg PO DAILY #10 tablet Ondansetron HCl [Zofran] 4 mg PO TID PRN #10 tablet PRN Reason: Nausea/Vomiting
--- NOTE | 2018-03-27 11:59 | XRAY ---
Indication: "Sore" 2nd toe. No known injury. Comparison: None 3 weightbearing views of the left foot demonstrates tiny plantar heel spur and minimal degenerative changes of the 1st MTP and midfoot. No other bony, articular, or soft tissue abnormalities.
[2018-03-27 12:32] LABS: INFLUENZA A NEGATIVE (NEGATIVE); INFLUENZA B NEGATIVE (NEGATIVE); RESPIRATORY SYNCTIAL VIRUS NEGATIVE (Negative)
[2018-03-27 13:13] VITALS: BP 169/84; PULSE 67; O2SAT 99
[2018-03-27] MEDS ORDERED: Pepcid 20 MG PO ONE (13:16)
[2018-03-27] MEDS ORDERED: ZOFRAN ODT 4 MG ONE (13:17)
[2018-03-27] MEDS ORDERED: ZOFRAN ODT 4 MG PO ONE (13:17)
[2018-03-27] MEDS ORDERED: Pepcid 20 MG ONE (13:17)
== END 2018-03-27 13:19 | disposition home or self-care (01) ==
LOC: ED 11:19
DX: T36.1X5A Adverse effect of cephalosporins and other beta-lactam antibiotics, initial encounter (principal); R11.2 Nausea with vomiting, unspecified; R19.7 Diarrhea, unspecified; K29.70 Gastritis, unspecified, without bleeding; Z79.899 Other long term (current) drug therapy; I10 Essential (primary) hypertension; E03.9 Hypothyroidism, unspecified
CPT/HCPCS: 73630; 87631; 99283; Q0162; A9270-GY

== ENCOUNTER 2019-09-17 16:11 | Observation (INO) | payer OTHER ==
[2019-09-17] MEDS ORDERED: Zofran 4 MG/2 ML VIAL IV ONE (16:29)
[2019-09-17] MEDS ORDERED: BABY ASPIRIN 81 MG CHEW PO ONE (16:29)
[2019-09-17] MEDS ORDERED: MORPHINE SULFATE 4 MG INJ IV ONE (16:29)
[2019-09-17] MEDS ORDERED: NITRO-BID 2% UD PACKETS TOP ONE (16:29)
[2019-09-17] MEDS ORDERED: DUONEB 0.5-3 MG/3 ml Neb IH ONE ×2 (16:30→16:36)
[2019-09-17] MEDS ORDERED: MORPHINE SULFATE 4 MG INJ ONE (16:34)
[2019-09-17] MEDS ORDERED: NITRO-BID 2% UD PACKETS ONE (16:34)
[2019-09-17] MEDS ORDERED: Zofran 4 MG/2 ML VIAL ONE (16:34)
[2019-09-17] MEDS ORDERED: BABY ASPIRIN 81 MG CHEW ONE (16:34)
[2019-09-17 16:40] LABS: Absolute Neutrophil Ct (ANC) 8.46 (1.4-6.9); BASOPHIL % 0.5 % (0.0-0.4); Basophil (Absolute #) 0.06 (0-0.4); Eosinophil (Absolute #) 0.53 (0-0.5); Hematocrit 41.5 % (35-47); Hemoglobin 13.2 gm/dl (12.0-16.0); Lymphocyte (Absolute #) 3.11 (1.0-4.6); Lymphocytes % 23.7 % (24.0-44.0); Mean Corpuscular Hemoglobin 29.3 pg (26-32); Mean Corpuscular Hgb Concent. 31.8 g/dl (32-36); Mean Platelet Volume 10.2 fl (7.5-11.0); Monocyte (Absolute #) 0.99 (0.0-1.3); Monocytes % 7.5 % (0.0-12.0); Neutrophil % 64.3 % (36.0-66.0); Platelet Count 397 K/mm3 (150-450); Red Blood Count 4.51 M/mm3 (4.1-5.4); Red Cell Distribution Width 14.9 % (11.5-14.0); White Blood Count 13.2 K/mm3 (4.0-10.5)
--- NOTE | 2019-09-17 16:45 | ERPHSYRPT ---
- History of Present Illness Time Seen by Provider: 09/17/19 16:29 Historian: patient Exam Limitations: no limitations Patient Subjective Stated Complaint: PT states "I have really bad chest pressure. It has been going on for the past 3 hours." Triage Nursing Assessment: Pt presetned alert andoriented X 3, skin pwd Pt ambulates iwth an upright slow gait, pt uses a cane. Pt has no apparent respiratory distress. Physician History: 59 years old female with a history of hypertension, hyperlipidemia, hypothyroidism, tobacco abuse presented in the ER with chief complaint of sudden onset chest pain pressure and tightness almost 3 hours ago. Moderate to severe in intensity and mild improvement on the way to the ER. Aggravated with ambulation and movements of arm/breathing in no significant relieving factor. Denies any shortness of breath associated with it. No palpitations or cough reported. Does have history of intermittent chest pain in the past and has stress test done at [facility] but it is unknown sure about the results. Denies any fever or chills. Does not have any cardiac cath done. Timing/Duration: hour(s) (3), sudden, improved Activities at Onset: rest Quality: dullness, pressure Location: substernal Chest Pain Radiation: no radiation Severity of Pain-Max: severe Severity of Pain-Current: moderate Modifying Factors: Improves With: breathing, exertion, movement Associated Symptoms: denies symptoms Prior Chest Pain/Cardiac Workup: stress test Nitro Today/Relief: no nitro taken today Aspirin Treatment Today: no aspirin today Allergies/Adverse Reactions: penicillin G Allergy (Intermediate, Verified 03/27/18 11:30) CAN'T MOVE Sulfa (Sulfonamide Antibiotics) Allergy (Intermediate, Verified 03/27/18 11:30) Hives cephalexin [From Keflex] Adverse Reaction (Intermediate, Verified 09/17/19 16:19) nausea/vomiting Home Medications: Bisoprolol/Hydrochlorothiazide [Bisoprolol-Hctz 10-6.25 mg Tab] 1 each PO DAILY 05/02/16 [History] Levothyroxine Sodium 50 Mcg [Synthroid 50 Mcg] 50 mcg PO DAILY 05/02/16 [History] Carvedilol 3.125 mg [Coreg 3.125 MG] 3.125 mg PO BID 09/28/17 [History] lisinopriL [Zestril] 5 mg PO DAILY 09/28/17 [History] Furosemide 20 mg [Lasix 20 mg] 20 mg PO BID 09/17/19 [History] Montelukast Sodium 10 mg [Singulair 10 MG] 10 mg PO DAILY 09/17/19 [History] Hx Tetanus, Diphtheria Vaccination/Date Given: No Hx Influenza Vaccination/Date Given: Yes Hx Pneumococcal Vaccination/Date Given: Yes Immunizations Up to Date: Yes Travel Risk - International Travel Have you traveled outside of the country in past 3 weeks: No - Coronavirus Screening Are you exhibiting any of the following symptoms?: No Close contact with a COVID-19 positive Pt in past 14-21 Days: No - Review of Systems Constitutional: No Symptoms Eyes: No Symptoms Ears, Nose, & Throat: No Symptoms Respiratory: No Symptoms Cardiac: Chest Pain Abdominal/Gastrointestinal: No Symptoms Genitourinary Symptoms: No Symptoms Musculoskeletal: No Symptoms Skin: No Symptoms Neurological: No Symptoms Psychological: No Symptoms Endocrine: No Symptoms Hematologic/Lymphatic: No Symptoms Immunological/Allergic: No Symptoms - Past Medical History Pertinent Past Medical History: Yes Neurological History: No Pertinent History ENT History: No Pertinent History Cardiac History: Hypertension Respiratory History: No Pertinent History Endocrine Medical History: Hypothyroidism Musculoskeletal History: Arthritis GI Medical History: Ulcer History: No Pertinent History Psycho-Social History: No Pertinent History Female Reproductive Disorders: No Pertinent History - Past Surgical History Past Surgical History: Yes Neuro Surgical History: No Pertinent History Cardiac: No Pertinent History Respiratory: No Pertinent History Gastrointestinal: No Pertinent History Genitourinary: No Pertinent History Musculoskeletal: No Pertinent History Female Surgical History: Hysterectomy, Other Other Surgical History: bartholins cyst excision - Social History Smoking Status: Current every day smoker How long have you smoked: years Exposure to second hand smoke: Yes Drug Use: none Patient Lives Alone: No - Female History Hx Now: No - Nursing Vital Signs Nursing Vital Signs: Initial Vital Signs Temperature 98.0 F 09/17/19 16:12 Pulse Rate 66 09/17/19 16:12 Respiratory Rate 22 09/17/19 16:12 Blood Pressure 116/45 09/17/19 16:12 O2 Sat by Pulse Oximetry 98 09/17/19 16:12 Pain Scale Pain Intensity 0 - Physical Exam General Appearance: no apparent distress Eye Exam: PERRL/EOMI, eyes nml inspection Ears, Nose, Throat Exam: normal ENT inspection, pharynx normal Neck Exam: normal inspection, non-tender, supple, full range of motion Respiratory Exam: normal breath sounds, lungs clear Cardiovascular Exam: regular rate/rhythm, normal heart sounds Gastrointestinal/Abdomen Exam: soft, normal bowel sounds, tenderness Back Exam: normal inspection, normal range of motion Extremity Exam: normal inspection, normal range of motion Neurologic Exam: alert, oriented x 3, cooperative Skin Exam: normal color SpO2 Interpretation: normal SpO2: 98 O2 Delivery: Room Air - Course EKG Interpreted by Me: RATE, NORMAL AXIS, NORMAL INTERVALS, Q-wave Ordered Tests: Active Orders 24 hr Category Date Time Status Up With Assistance ROUTINE Activity 09/17/19 19:52 Active [employer]al Supervising Cook STAT Care 09/17/19 16:29 Completed Code Status Order ROUTINE Care 09/17/19 19:52 Active EKG-ER Only STAT Care 09/17/19 16:29 Completed Fall Protocol ROUTINE Care 09/17/19 19:52 Active IV Care Q6H Care 09/17/19 19:52 Active IV Insertion STAT Care 09/17/19 16:[address] in Observation ROUTINE Care 09/17/19 19:52 Active Konstantin Hose, Apply ROUTINE Care 09/17/19 19:52 Active Heart-Healthy Diet Diet 09/17/19 Breakfast Active CHEST 1 VIEW (PORTABLE) Stat Exams 09/17/19 16:29 Completed CBC W DIFF AM.LAB Lab 09/18/19 04:00 Ordered CBC W DIFF Stat Lab 09/17/19 16:20 Completed CMP AM.LAB Lab 09/18/19 04:00 Ordered CMP Stat Lab 09/17/19 16:20 Completed D-DIMER QUANTITATIVE Stat Lab 09/17/19 16:20 Completed NT PRO BNP Stat Lab 09/17/19 16:20 Completed TROPONIN Q3H Lab 09/17/19 16:20 Completed TROPONIN Q3H Lab 09/17/19 19:39 Completed TROPONIN Q3H Lab 09/17/19 22:30 Ordered TROPONIN Q3H Lab 09/18/19 01:30 Ordered TROPONIN Q3H Lab 09/18/19 04:30 Ordered Transfer Order Routine Transfer 09/17/19 Completed Medication Summary Generic Name Dose Route Start Last Admin Trade Name Freq PRN Reason Stop Dose Admin Acetaminophen 650 mg 09/17/19 19:52 Tylenol 325 Mg PO 10/17/19 19:51 Q4H PRN PRN PAIN AND/OR FEVER Albuterol/Ipratropium 3 ml 09/17/19 19:52 Duoneb 0.5-3 Mg/3 Ml Neb IH 10/17/19 19:51 Q4HPRN PRN SHORTNESS OF BREATH/WHEEZING Famotidine 20 mg 09/17/19 22:00 Pepcid 20 Mg Vial IV 10/17/19 21:59 Q12HT SHARITA Discontinued Medications Generic Name Dose Route Start Last Admin Trade Name Freq PRN Reason Stop Dose Admin Albuterol/Ipratropium 3 ml 09/17/19 16:30 09/17/19 16:42 Duoneb 0.5-3 Mg/3 Ml Neb IH 09/17/19 16:31 3 ml STAT ONE Administration Albuterol/Ipratropium Confirm 09/17/19 16:36 Duoneb 0.5-3 Mg/3 Ml Neb Administered 09/17/19 16:37 Dose 3 ml IH .STK-MED ONE Aspirin 324 mg 09/17/19 16:29 09/17/19 16:36 Baby Aspirin 81 Mg Chew PO 09/17/19 16:30 324 mg STAT ONE Administration Aspirin Confirm 09/17/19 16:34 Baby Aspirin 81 Mg Chew Administered 09/17/19 16:35 Dose 324 mg .ROUTE .STK-MED ONE Morphine Sulfate 4 mg 09/17/19 16:29 09/17/19 16:37 Morphine Sulfate 4 Mg Inj IV 09/17/19 16:30 4 mg STAT ONE Administration Morphine Sulfate Confirm 09/17/19 16:34 Morphine Sulfate 4 Mg Inj Administered 09/17/19 16:35 Dose 4 mg .ROUTE .STK-MED ONE Nitroglycerin 1 gm 09/17/19 16:29 09/17/19 16:36 Nitro-Bid 2% Ud Packets TOP 09/17/19 16:30 1 gm STAT ONE Administration Nitroglycerin Confirm 09/17/19 16:34 Nitro-Bid 2% Ud Packets Administered 09/17/19 16:35 Dose 1 gm .ROUTE .STK-MED ONE Ondansetron HCl 4 mg 09/17/19 16:29 09/17/19 16:36 Zofran 4 Mg/2 Ml Vial IV 09/17/19 16:30 4 mg STAT ONE Administration Ondansetron HCl Confirm 09/17/19 16:34 Zofran 4 Mg/2 Ml Vial Administered 09/17/19 16:35 Dose 4 mg .ROUTE .STK-MED ONE Lab/Rad Data: Laboratory Result Diagrams 09/17/19 16:20 09/17/19 16:20 Laboratory Results 09/17/19 09/17/19 09/17/19 Range/Units 16:20 16:20 16:20 WBC (4.0-10.5) K/mm3 RBC (4.1-5.4) M/mm3 Hgb (12.0-16.0) gm/dl Hct (35-47) % MCV (78-100) fl MCH (26-32) pg MCHC (32-36) g/dl RDW (11.5-14.0) % Plt Count (150-450) K/mm3 MPV (7.5-11.0) fl Gran % (36.0-66.0) % Eos # (Auto) (0-0.5) Absolute Lymphs (auto) (1.0-4.6) Absolute Monos (auto) (0.0-1.3) Lymphocytes % (24.0-44.0) % Monocytes % (0.0-12.0) % Eosinophils % (0.00-5.0) % Basophils % (0.0-0.4) % Absolute Granulocytes (1.4-6.9) Basophils # (0-0.4) D-Dimer 497 (215-500) ng/mL Sodium 136 L (137-145) mmol/L Potassium 3.9 (3.5-5.1) mmol/L Chloride 101 (98-107) mmol/L Carbon Dioxide 28 (22-30) mmol/L Anion Gap 11.4 (5-15) MEQ/L BUN 14 (7-17) mg/dL Creatinine 0.89 (0.52-1.04) mg/dL Estimated GFR > 60.0 ML/MIN Glucose 105 (74-106) mg/dL Calcium 9.0 (8.4-10.2) mg/dL Total Bilirubin 0.30 (0.2-1.3) mg/dL AST 20 (14-36) U/L ALT 14 (0-35) U/L Alkaline Phosphatase 165 H (38-126) U/L Troponin I < 0.012 (0.000-0.034) ng/mL NT-Pro-B Natriuret Pep 87.2 (0-900) pg/mL Serum Total Protein 7.8 (6.3-8.2) g/dL Albumin 4.0 (3.5-5.0) g/dL 09/17/19 Range/Units 16:20 WBC 13.2 H (4.0-10.5) K/mm3 RBC 4.51 (4.1-5.4) M/mm3 Hgb 13.2 (12.0-16.0) gm/dl Hct 41.5 (35-47) % MCV 92.0 (78-100) fl MCH 29.3 (26-32) pg MCHC 31.8 L (32-36) g/dl RDW 14.9 H (11.5-14.0) % Plt Count 397 (150-450) K/mm3 MPV 10.2 (7.5-11.0) fl Gran % 64.3 (36.0-66.0) % Eos # (Auto) 0.53 H (0-0.5) Absolute Lymphs (auto) 3.11 (1.0-4.6) Absolute Monos (auto) 0.99 (0.0-1.3) Lymphocytes % 23.7 L (24.0-44.0) % Monocytes % 7.5 (0.0-12.0) % Eosinophils % 4.0 (0.00-5.0) % Basophils % 0.5 (0.0-0.4) % Absolute Granulocytes 8.46 H (1.4-6.9) Basophils # 0.06 (0-0.4) D-Dimer (215-500) ng/mL Sodium (137-145) mmol/L Potassium (3.5-5.1) mmol/L Chloride (98-107) mmol/L Carbon Dioxide (22-30) mmol/L Anion Gap (5-15) MEQ/L BUN (7-17) mg/dL Creatinine (0.52-1.04) mg/dL Estimated GFR ML/MIN Glucose (74-106) mg/dL Calcium (8.4-10.2) mg/dL Total Bilirubin (0.2-1.3) mg/dL AST (14-36) U/L ALT (0-35) U/L Alkaline Phosphatase (38-126) U/L Troponin I (0.000-0.034) ng/mL NT-Pro-B Natriuret Pep (0-900) pg/mL Serum Total Protein (6.3-8.2) g/dL Albumin (3.5-5.0) g/dL - Progress Progress: improved, re-examined Air Movement: good Progress Note: 09/17/19 initial chest pain work-up is negative. Patient has multiple risk fact ors for heart disease. I believe patient needs observation and trend of cardiac enzymes. Discussed with Dr. [place] and patient is being admitted. Blood Culture(s) Obtained: No Antibiotics given: No Discussed with : Tammy Will see patient in: hospital (observation) Counseled pt/family regarding: lab results, diagnosis, rad results, smoking cessation - Departure Departure Disposition: Observation Clinical Impression: Chest pain, rule out acute myocardial infarction Condition: Good Critical Care Time: No
--- NOTE | 2019-09-17 16:59 | XRAY ---
Indication: Chest pain. Comparison: May 02, 2016. Portable apical lordotic chest again demonstrates minimal lingula fibrosis/scarring and subcarinal calcified node. Remaining heart, lungs, and bony thorax are normal.
[2019-09-17 17:18] LABS: ALKALINE PHOSPHATASE 165 U/L (38-126); ANION GAP 11.4 MEQ/L (5-15); BLOOD UREA NITROGEN 14 mg/dL (7-17); CHLORIDE 101 mmol/L (98-107); Carbon Dioxide 28 mmol/L (22-30); Creatinine 1 0.89 mg/dL (0.52-1.04); Glucose 105 mg/dL (74-106); NT PRO BNP 87.2 pg/mL (0-900); Potassium 3.9 mmol/L (3.5-5.1); SGOT/AST 20 U/L (14-36); SGPT/ALT 14 U/L (0-35); SODIUM 136 mmol/L (137-145); Total Protein 7.8 g/dL (6.3-8.2)
[2019-09-17] MEDS ORDERED: DUONEB 0.5-3 MG/3 ml Neb IH PRN (19:52)
[2019-09-17] MEDS ORDERED: TYLENOL 325 MG PO PRN (19:52)
[2019-09-17] MEDS ORDERED: Pepcid 20 MG VIAL IV SCH (22:00)
[2019-09-18] MEDS: MORPHINE SULFATE 2 MG INJ IV PRN ×2 (02:40→09:49)
[2019-09-18 04:49] VITALS: BP 121/57
[2019-09-18 04:58] LABS: Absolute Neutrophil Ct (ANC) 7.56 (1.4-6.9); BASOPHIL % 0.3 % (0.0-0.4); Basophil (Absolute #) 0.03 (0-0.4); Eosinophil % 3.7 % (0.00-5.0); Eosinophil (Absolute #) 0.43 (0-0.5); Hematocrit 39.1 % (35-47); Hemoglobin 12.3 gm/dl (12.0-16.0); Lymphocyte (Absolute #) 2.88 (1.0-4.6); Lymphocytes % 24.6 % (24.0-44.0); Mean Cell Volume 92.7 fl (78-100); Mean Corpuscular Hemoglobin 29.1 pg (26-32); Mean Corpuscular Hgb Concent. 31.5 g/dl (32-36); Mean Platelet Volume 10.1 fl (7.5-11.0); Monocytes % 6.8 % (0.0-12.0); Neutrophil % 64.6 % (36.0-66.0); Platelet Count 379 K/mm3 (150-450); Red Blood Count 4.22 M/mm3 (4.1-5.4); Red Cell Distribution Width 14.8 % (11.5-14.0); White Blood Count 11.7 K/mm3 (4.0-10.5)
[2019-09-18 05:28] LABS: ALBUMIN 3.6 g/dL (3.5-5.0); ALKALINE PHOSPHATASE 132 U/L (38-126); ANION GAP 10.1 MEQ/L (5-15); BLOOD UREA NITROGEN 14 mg/dL (7-17); CHLORIDE 104 mmol/L (98-107); Calcium 8.5 mg/dL (8.4-10.2); Carbon Dioxide 26 mmol/L (22-30); Glucose 99 mg/dL (74-106); Potassium 4.5 mmol/L (3.5-5.1); SGOT/AST 15 U/L (14-36); SGPT/ALT 13 U/L (0-35); SODIUM 135 mmol/L (137-145); Total Protein 7.1 g/dL (6.3-8.2)
[2019-09-18 08:03] VITALS: PULSE 61; O2SAT 97
--- NOTE | 2019-09-18 09:13 | PCM.SSS ---
History of Present Illness - Chief Complaint Chief Complaint: CP R/O History of Present Illness: is a 59 year old female pt with CAD, OA, hypothyroid and HTN who presented to ER last night with chest pain and was admitted for [place] R/o. She was sweeping the floor yesterday, then sat down to talk on the phone and had worsening chest pressure, bilat, nonradiating, 8-9/10, with palpitations and nausea (no diaphoresis or vomiting). Her friend brought her to ER. Her troponins have been neg x 5. EKG NSR, no ST changes, normal axis. Her parents both had CAD. Pt is smoker; her last stress test was 2 yrs ago. She will be discharged to home today. Will need to call her patient care associate for follow up. - Review of Systems Cardiac: Chest Pain, Edema (chronic LE edema), Palpitations Abdominal/Gastrointestinal: Abdominal Pain (chronic RLQ pain, has been evaluated), Nausea Neurological: Sensory Changes (mouth numbness at times; has been evaluated) Psychological: No Suicidal Ideations All Other Systems: Reviewed and Negative Medications & Allergies Home Medications: Home Medication List Albuterol Sulfate [Albuterol Sulfate Hfa] 2 puff IH Q4-6HPRN PRN #1 hfa.aer.ad 05/02/16 [Rx Confirmed 09/17/19] Levothyroxine Sodium 50 Mcg [Synthroid 50 Mcg] 50 mcg PO DAILY 05/02/16 [History Confirmed 09/17/19] Carvedilol 3.125 mg [Coreg 3.125 MG] 3.125 mg PO DAILY 09/28/17 [History Confirmed 09/17/19] lisinopriL [Zestril] 5 mg PO DAILY 09/28/17 [History Confirmed 09/17/19] Famotidine 20 mg [Pepcid 20 MG] 20 mg PO DAILY #10 tablet 03/27/18 [Rx Confirmed 09/17/19] Ondansetron HCl [Zofran] 4 mg PO TID PRN #10 tablet 03/27/18 [Rx Confirmed 09/17/19] Furosemide 20 mg [Lasix 20 mg] 20 mg PO BID 09/17/19 [History Confirmed 09/17/19] Allergies/Adverse Reactions: Allergies Allergy/AdvReac Type Severity Reaction Status Date / Time penicillin G Allergy Intermediate CAN'T MOVE Verified 03/27/18 11:30 Sulfa (Sulfonamide Allergy Intermediate Hives Verified 03/27/18 11:30 Antibiotics) cephalexin [From Keflex] AdvReac Intermediate nausea/vomi Verified 09/17/19 16:19 ting - Past Medical History Past Medical History: Yes Neurological History: No Pertinent History ENT History: No Pertinent History Cardiac History: Hypertension Respiratory History: Asthma Endocrine Medical History: Hypothyroidism Musculoskelatal History: Arthritis GI Medical History: Ulcer History: No Pertinent History Pyscho-Social History: No Pertinent History Reproductive Disorders: No Pertinent History - Female History Are you now?: No - Past Surgical History Past Surgical History: Yes Neuro Surgical History: No Pertinent History Cardiac History: No Pertinent History Respiratory Surgery: No Pertinent History GI Surgical History: No Pertinent History Genitourinary Surgical Hx: No Pertinent History Musculskeletal Surgical Hx: No Pertinent History Female Surgical History: Hysterectomy, Other Other Surgical History: bartholins cyst excision - Social History Smoking Status: Current every day smoker How long have you smoked: years Exposure to second hand smoke: Yes Alcohol: Rarely Drug Use: none - Physical Exam Vital Signs: Vital Signs - 24 hr Temp Pulse Pulse Resp BP Pulse Ox 09/18/19 08:01 61 16 97 09/18/19 07:14 98.2 F 64 18 121/57 95 09/18/19 06:38 71 16 94 L 09/18/19 04:00 98.4 F 71 17 121/57 94 L 09/17/19 23:42 97.4 F 83 15 131/60 96 09/17/19 21:31 65 22 95 09/17/19 20:35 98 09/17/19 20:10 97.6 F 57 L 22 135/66 09/17/19 18:34 98.5 F 53 L 18 120/68 97 09/17/19 17:13 97.8 F 68 18 145/65 97 09/17/19 16:44 68 16 99 09/17/19 16:12 98.0 F 63 66 22 116/45 98 General Appearance: no apparent distress, alert (sitting up eating breakfast), obese Neurologic Exam: oriented x 3, cooperative Eye Exam: eyes nml inspection Ears, Nose, Throat Exam: moist mucous membranes Neck Exam: normal inspection, non-tender, No lymphadenopathy Respiratory Exam: normal breath sounds, lungs clear, wheezing (faint scattered), No crackles/rales, No rhonchi Cardiovascular Exam: regular rate/rhythm, normal heart sounds, No murmur Gastrointestinal/Abdomen Exam: soft, normal bowel sounds, No tenderness, No distention, No mass, No guarding, No rebound Back Exam: normal inspection, No CVA tenderness, No rash Extremity Exam: normal inspection, pedal edema, swelling (1+ pretibial) Skin Exam: normal color, warm, dry, No rash Results - Labs Lab/Micro Results: Lab Results-Last 24 Hours 09/17/19 09/17/19 09/17/19 Range/Units 16:20 16:20 16:20 WBC 13.2 H (4.0-10.5) K/mm3 RBC 4.51 (4.1-5.4) M/mm3 Hgb 13.2 (12.0-16.0) gm/dl Hct 41.5 (35-47) % MCV 92.0 (78-100) fl MCH 29.3 (26-32) pg MCHC 31.8 L (32-36) g/dl RDW 14.9 H (11.5-14.0) % Plt Count 397 (150-450) K/mm3 MPV 10.2 (7.5-11.0) fl Gran % 64.3 (36.0-66.0) % Eos # (Auto) 0.53 H (0-0.5) Absolute Lymphs (auto) 3.11 (1.0-4.6) Absolute Monos (auto) 0.99 (0.0-1.3) Lymphocytes % 23.7 L (24.0-44.0) % Monocytes % 7.5 (0.0-12.0) % Eosinophils % 4.0 (0.00-5.0) % Basophils % 0.5 (0.0-0.4) % Absolute Granulocytes 8.46 H (1.4-6.9) Basophils # 0.06 (0-0.4) D-Dimer 497 (215-500) ng/mL Sodium 136 L (137-145) mmol/L Potassium 3.9 (3.5-5.1) mmol/L Chloride 101 (98-107) mmol/L Carbon Dioxide 28 (22-30) mmol/L Anion Gap 11.4 (5-15) MEQ/L BUN 14 (7-17) mg/dL Creatinine 0.89 (0.52-1.04) mg/dL Estimated GFR > 60.0 ML/MIN Glucose 105 (74-106) mg/dL Calcium 9.0 (8.4-10.2) mg/dL Total Bilirubin 0.30 (0.2-1.3) mg/dL AST 20 (14-36) U/L ALT 14 (0-35) U/L Alkaline Phosphatase 165 H (38-126) U/L Troponin I (0.000-0.034) ng/mL NT-Pro-B Natriuret Pep 87.2 (0-900) pg/mL Serum Total Protein 7.8 (6.3-8.2) g/dL Albumin 4.0 (3.5-5.0) g/dL 09/17/19 09/17/19 09/17/19 Range/Units 16:20 19:39 22:43 WBC (4.0-10.5) K/mm3 RBC (4.1-5.4) M/mm3 Hgb (12.0-16.0) gm/dl Hct (35-47) % MCV (78-100) fl MCH (26-32) pg MCHC (32-36) g/dl RDW (11.5-14.0) % Plt Count (150-450) K/mm3 MPV (7.5-11.0) fl Gran % (36.0-66.0) % Eos # (Auto) (0-0.5) Absolute Lymphs (auto) (1.0-4.6) Absolute Monos (auto) (0.0-1.3) Lymphocytes % (24.0-44.0) % Monocytes % (0.0-12.0) % Eosinophils % (0.00-5.0) % Basophils % (0.0-0.4) % Absolute Granulocytes (1.4-6.9) Basophils # (0-0.4) D-Dimer (215-500) ng/mL Sodium (137-145) mmol/L Potassium (3.5-5.1) mmol/L Chloride (98-107) mmol/L Carbon Dioxide (22-30) mmol/L Anion Gap (5-15) MEQ/L BUN (7-17) mg/dL Creatinine (0.52-1.04) mg/dL Estimated GFR ML/MIN Glucose (74-106) mg/dL Calcium (8.4-10.2) mg/dL Total Bilirubin (0.2-1.3) mg/dL AST (14-36) U/L ALT (0-35) U/L Alkaline Phosphatase (38-126) U/L Troponin I < 0.012 < 0.012 < 0.012 (0.000-0.034) ng/mL NT-Pro-B Natriuret Pep (0-900) pg/mL Serum Total Protein (6.3-8.2) g/dL Albumin (3.5-5.0) g/dL 09/18/19 09/18/19 09/18/19 Range/Units 01:44 04:40 04:40 WBC 11.7 H (4.0-10.5) K/mm3 RBC 4.22 (4.1-5.4) M/mm3 Hgb 12.3 (12.0-16.0) gm/dl Hct 39.1 (35-47) % MCV 92.7 (78-100) fl MCH 29.1 (26-32) pg MCHC 31.5 L (32-36) g/dl RDW 14.8 H (11.5-14.0) % Plt Count 379 (150-450) K/mm3 MPV 10.1 (7.5-11.0) fl Gran % 64.6 (36.0-66.0) % Eos # (Auto) 0.43 (0-0.5) Absolute Lymphs (auto) 2.88 (1.0-4.6) Absolute Monos (auto) 0.80 (0.0-1.3) Lymphocytes % 24.6 (24.0-44.0) % Monocytes % 6.8 (0.0-12.0) % Eosinophils % 3.7 (0.00-5.0) % Basophils % 0.3 (0.0-0.4) % Absolute Granulocytes 7.56 H (1.4-6.9) Basophils # 0.03 (0-0.4) D-Dimer (215-500) ng/mL Sodium (137-145) mmol/L Potassium (3.5-5.1) mmol/L Chloride (98-107) mmol/L Carbon Dioxide (22-30) mmol/L Anion Gap (5-15) MEQ/L BUN (7-17) mg/dL Creatinine (0.52-1.04) mg/dL Estimated GFR ML/MIN Glucose (74-106) mg/dL Calcium (8.4-10.2) mg/dL Total Bilirubin (0.2-1.3) mg/dL AST (14-36) U/L ALT (0-35) U/L Alkaline Phosphatase (38-126) U/L Troponin I < 0.012 < 0.012 (0.000-0.034) ng/mL NT-Pro-B Natriuret Pep (0-900) pg/mL Serum Total Protein (6.3-8.2) g/dL Albumin (3.5-5.0) g/dL 09/18/19 Range/Units 04:40 WBC (4.0-10.5) K/mm3 RBC (4.1-5.4) M/mm3 Hgb (12.0-16.0) gm/dl Hct (35-47) % MCV (78-100) fl MCH (26-32) pg MCHC (32-36) g/dl RDW (11.5-14.0) % Plt Count (150-450) K/mm3 MPV (7.5-11.0) fl Gran % (36.0-66.0) % Eos # (Auto) (0-0.5) Absolute Lymphs (auto) (1.0-4.6) Absolute Monos (auto) (0.0-1.3) Lymphocytes % (24.0-44.0) % Monocytes % (0.0-12.0) % Eosinophils % (0.00-5.0) % Basophils % (0.0-0.4) % Absolute Granulocytes (1.4-6.9) Basophils # (0-0.4) D-Dimer (215-500) ng/mL Sodium 135 L (137-145) mmol/L Potassium 4.5 (3.5-5.1) mmol/L Chloride 104 (98-107) mmol/L Carbon Dioxide 26 (22-30) mmol/L Anion Gap 10.1 (5-15) MEQ/L BUN 14 (7-17) mg/dL Creatinine 0.80 (0.52-1.04) mg/dL Estimated GFR > 60.0 ML/MIN Glucose 99 (74-106) mg/dL Calcium 8.5 (8.4-10.2) mg/dL Total Bilirubin 0.40 (0.2-1.3) mg/dL AST 15 (14-36) U/L ALT 13 (0-35) U/L Alkaline Phosphatase 132 H (38-126) U/L Troponin I (0.000-0.034) ng/mL NT-Pro-B Natriuret Pep (0-900) pg/mL Serum Total Protein 7.1 (6.3-8.2) g/dL Albumin 3.6 (3.5-5.0) g/dL - Radiology Impressions Radiology Exams & Impressions: Radiology Procedures Category Date Time Status CHEST 1 VIEW (PORTABLE) Stat Exams 09/17/19 16:29 Completed - Other Procedures and Tests Respiratory Therapy 09/17/19 16:44 Peak Expiratory Flow Rate ONCE Respiratory Therapy Assessment DAILY Assessment/Plan (1) Chest pain, rule out acute myocardial infarction Current Visit: Yes Status: Acute Assessment & Plan: [place] ruled out. Pt to be discharged to home, will call her patient care associate for follow up (likely repeat stress test). Code(s): R07.9 - CHEST PAIN, UNSPECIFIED Hospital Summary - Hospital Course Hospital Course: Pt is 59 yo with CAD, smoker, who was admitted for chest pain through ER to r/o [place]. Troponins all neg and EKG fine; will be discharged to home and needs to call her patient care associate for f/u. - Vitals & Intake/Output Vital Signs: Vital Signs Temperature 98.2 F 09/18/19 07:14 Pulse Rate 61 09/18/19 08:01 Respiratory Rate 16 09/18/19 08:01 Blood Pressure 121/57 09/18/19 07:14 O2 Sat by Pulse Oximetry 97 09/18/19 08:01 Intake & Output: Intake & Output 09/15/19 09/16/19 09/17/19 09/18/19 11:59 11:59 11:59 11:59 Intake Total 400 Output Total 300 Balance 100 Weight 118.6 kg - Lab Result Diagrams: 09/18/19 04:40 09/18/19 04:40 Lab Results-Last 24 Hrs: Lab Results-Last 24 Hours 09/17/19 09/17/19 09/17/19 Range/Units 16:20 16:20 16:20 WBC 13.2 H (4.0-10.5) K/mm3 RBC 4.51 (4.1-5.4) M/mm3 Hgb 13.2 (12.0-16.0) gm/dl Hct 41.5 (35-47) % MCV 92.0 (78-100) fl MCH 29.3 (26-32) pg MCHC 31.8 L (32-36) g/dl RDW 14.9 H (11.5-14.0) % Plt Count 397 (150-450) K/mm3 MPV 10.2 (7.5-11.0) fl Gran % 64.3 (36.0-66.0) % Eos # (Auto) 0.53 H (0-0.5) Absolute Lymphs (auto) 3.11 (1.0-4.6) Absolute Monos (auto) 0.99 (0.0-1.3) Lymphocytes % 23.7 L (24.0-44.0) % Monocytes % 7.5 (0.0-12.0) % Eosinophils % 4.0 (0.00-5.0) % Basophils % 0.5 (0.0-0.4) % Absolute Granulocytes 8.46 H (1.4-6.9) Basophils # 0.06 (0-0.4) D-Dimer 497 (215-500) ng/mL Sodium 136 L (137-145) mmol/L Potassium 3.9 (3.5-5.1) mmol/L Chloride 101 (98-107) mmol/L Carbon Dioxide 28 (22-30) mmol/L Anion Gap 11.4 (5-15) MEQ/L BUN 14 (7-17) mg/dL Creatinine 0.89 (0.52-1.04) mg/dL Estimated GFR > 60.0 ML/MIN Glucose 105 (74-106) mg/dL Calcium 9.0 (8.4-10.2) mg/dL Total Bilirubin 0.30 (0.2-1.3) mg/dL AST 20 (14-36) U/L ALT 14 (0-35) U/L Alkaline Phosphatase 165 H (38-126) U/L Troponin I (0.000-0.034) ng/mL NT-Pro-B Natriuret Pep 87.2 (0-900) pg/mL Serum Total Protein 7.8 (6.3-8.2) g/dL Albumin 4.0 (3.5-5.0) g/dL 09/17/19 09/17/19 09/17/19 Range/Units 16:20 19:39 22:43 WBC (4.0-10.5) K/mm3 RBC (4.1-5.4) M/mm3 Hgb (12.0-16.0) gm/dl Hct (35-47) % MCV (78-100) fl MCH (26-32) pg MCHC (32-36) g/dl RDW (11.5-14.0) % Plt Count (150-450) K/mm3 MPV (7.5-11.0) fl Gran % (36.0-66.0) % Eos # (Auto) (0-0.5) Absolute Lymphs (auto) (1.0-4.6) Absolute Monos (auto) (0.0-1.3) Lymphocytes % (24.0-44.0) % Monocytes % (0.0-12.0) % Eosinophils % (0.00-5.0) % Basophils % (0.0-0.4) % Absolute Granulocytes (1.4-6.9) Basophils # (0-0.4) D-Dimer (215-500) ng/mL Sodium (137-145) mmol/L Potassium (3.5-5.1) mmol/L Chloride (98-107) mmol/L Carbon Dioxide (22-30) mmol/L Anion Gap (5-15) MEQ/L BUN (7-17) mg/dL Creatinine (0.52-1.04) mg/dL Estimated GFR ML/MIN Glucose (74-106) mg/dL Calcium (8.4-10.2) mg/dL Total Bilirubin (0.2-1.3) mg/dL AST (14-36) U/L ALT (0-35) U/L Alkaline Phosphatase (38-126) U/L Troponin I < 0.012 < 0.012 < 0.012 (0.000-0.034) ng/mL NT-Pro-B Natriuret Pep (0-900) pg/mL Serum Total Protein (6.3-8.2) g/dL Albumin (3.5-5.0) g/dL 09/18/19 09/18/19 09/18/19 Range/Units 01:44 04:40 04:40 WBC 11.7 H (4.0-10.5) K/mm3 RBC 4.22 (4.1-5.4) M/mm3 Hgb 12.3 (12.0-16.0) gm/dl Hct 39.1 (35-47) % MCV 92.7 (78-100) fl MCH 29.1 (26-32) pg MCHC 31.5 L (32-36) g/dl RDW 14.8 H (11.5-14.0) % Plt Count 379 (150-450) K/mm3 MPV 10.1 (7.5-11.0) fl Gran % 64.6 (36.0-66.0) % Eos # (Auto) 0.43 (0-0.5) Absolute Lymphs (auto) 2.88 (1.0-4.6) Absolute Monos (auto) 0.80 (0.0-1.3) Lymphocytes % 24.6 (24.0-44.0) % Monocytes % 6.8 (0.0-12.0) % Eosinophils % 3.7 (0.00-5.0) % Basophils % 0.3 (0.0-0.4) % Absolute Granulocytes 7.56 H (1.4-6.9) Basophils # 0.03 (0-0.4) D-Dimer (215-500) ng/mL Sodium (137-145) mmol/L Potassium (3.5-5.1) mmol/L Chloride (98-107) mmol/L Carbon Dioxide (22-30) mmol/L Anion Gap (5-15) MEQ/L BUN (7-17) mg/dL Creatinine (0.52-1.04) mg/dL Estimated GFR ML/MIN Glucose (74-106) mg/dL Calcium (8.4-10.2) mg/dL Total Bilirubin (0.2-1.3) mg/dL AST (14-36) U/L ALT (0-35) U/L Alkaline Phosphatase (38-126) U/L Troponin I < 0.012 < 0.012 (0.000-0.034) ng/mL NT-Pro-B Natriuret Pep (0-900) pg/mL Serum Total Protein (6.3-8.2) g/dL Albumin (3.5-5.0) g/dL 09/18/19 Range/Units 04:40 WBC (4.0-10.5) K/mm3 RBC (4.1-5.4) M/mm3 Hgb (12.0-16.0) gm/dl Hct (35-47) % MCV (78-100) fl MCH (26-32) pg MCHC (32-36) g/dl RDW (11.5-14.0) % Plt Count (150-450) K/mm3 MPV (7.5-11.0) fl Gran % (36.0-66.0) % Eos # (Auto) (0-0.5) Absolute Lymphs (auto) (1.0-4.6) Absolute Monos (auto) (0.0-1.3) Lymphocytes % (24.0-44.0) % Monocytes % (0.0-12.0) % Eosinophils % (0.00-5.0) % Basophils % (0.0-0.4) % Absolute Granulocytes (1.4-6.9) Basophils # (0-0.4) D-Dimer (215-500) ng/mL Sodium 135 L (137-145) mmol/L Potassium 4.5 (3.5-5.1) mmol/L Chloride 104 (98-107) mmol/L Carbon Dioxide 26 (22-30) mmol/L Anion Gap 10.1 (5-15) MEQ/L BUN 14 (7-17) mg/dL Creatinine 0.80 (0.52-1.04) mg/dL Estimated GFR > 60.0 ML/MIN Glucose 99 (74-106) mg/dL Calcium 8.5 (8.4-10.2) mg/dL Total Bilirubin 0.40 (0.2-1.3) mg/dL AST 15 (14-36) U/L ALT 13 (0-35) U/L Alkaline Phosphatase 132 H (38-126) U/L Troponin I (0.000-0.034) ng/mL NT-Pro-B Natriuret Pep (0-900) pg/mL Serum Total Protein 7.1 (6.3-8.2) g/dL Albumin 3.6 (3.5-5.0) g/dL - Radiology Exams Ordered Rad Exams-Entire Visit: Radiology Procedures Category Date Time Status CHEST 1 VIEW (PORTABLE) Stat Exams 09/17/19 16:29 Completed - Procedures and Test Procedures and Tests throughout Hospitalization: Therapy Orders & Screens 09/17/19 16:44 Peak Expiratory Flow Rate ONCE Comment: Reason For Exam: Respiratory Therapy Assessment DAILY Comment: 09/17/19 20:35 RT Screen per Nursing Assess ONCE Comment: Protocol Order Physician Instructions: Greater than 3 points order RT Admission Screen Reason For Exam: Triggered on Admission Diagnosis: CP R/O Diagnosis: CP R/O Pneumonia: No Home O2: No Asthma: Yes CHF: No Home CPAP/BIPAP: No Home Nebs/MDI: Yes Total Points: 9 - Discharge Disposition: Home, Self-Care Condition: Good Prescriptions: No Action Levothyroxine Sodium 50 Mcg [Synthroid 50 Mcg] 50 mcg PO DAILY Albuterol Sulfate [Albuterol Sulfate Hfa] 2 puff IH Q4-6HPRN PRN #1 hfa.aer.ad PRN Reason: cough or wheeze lisinopriL [Zestril] 5 mg PO DAILY Carvedilol 3.125 mg [Coreg 3.125 MG] 3.125 mg PO DAILY Famotidine 20 mg [Pepcid 20 MG] 20 mg PO DAILY #10 tablet Ondansetron HCl [Zofran] 4 mg PO TID PRN #10 tablet PRN Reason: Nausea/Vomiting Furosemide 20 mg [Lasix 20 mg] 20 mg PO BID Follow up with: DOCTOR,NO FAMILY [Primary Care Provider] - 1 Week
[2019-09-18] MEDS ORDERED: NON-FORMULARY ITEM (Ondansetron Hcl [Zofran] 4 MG) PO PRN (09:14)
[2019-09-18] MEDS ORDERED: Ventolin Hfa MDI IH PRN (09:14)
[2019-09-18] MEDS ORDERED: ZOFRAN ODT 4 MG PO PRN (09:17)
[2019-09-18] MEDS ORDERED: VENTOLIN COMMON CANISTER IH PRN (09:18)
[2019-09-18] MEDS ORDERED: Zestril 5 MG PO SCH (10:00)
[2019-09-18] MEDS ORDERED: Coreg 3.125 MG PO SCH (10:00)
[2019-09-18] MEDS ORDERED: Pepcid 20 MG PO SCH (10:00)
[2019-09-18] MEDS ORDERED: SYNTHROID 50 MCG PO SCH (10:00)
[2019-09-18] MEDS ORDERED: LASIX 20 MG PO SCH (10:00)
== END 2019-09-18 10:37 | disposition home or self-care (01) ==
LOC: ED 16:11 → MED SURG 19:37
PROVIDERS: ADMIT Family Medicine; ATTEND Family Medicine
DX: R07.9 Chest pain, unspecified (principal); I25.10 Atherosclerotic heart disease of native coronary artery without angina pectoris; E03.9 Hypothyroidism, unspecified; I10 Essential (primary) hypertension; R10.31 Right lower quadrant pain; R00.2 Palpitations; R11.0 Nausea; Z79.899 Other long term (current) drug therapy; F17.200 Nicotine dependence, unspecified, uncomplicated
CPT/HCPCS: 36000; 36415; 71045; 80053; 83880; 84484; 85025; 85379; 93005; 93041; 94150; 94640; 94760; 96374; 96375; 99284; G0378; J2270; J2405; A9270-GY

== ENCOUNTER 2020-08-04 12:48 | Emergency (ER) | payer OTHER ==
[2020-08-04] MEDS ORDERED: Lasix 40 MG/4 ML IV ONE (13:09)
[2020-08-04] MEDS ORDERED: Lasix 40 MG/4 ML ONE (13:11)
--- NOTE | 2020-08-04 13:15 | ERPHSYRPT ---
- History of Present Illness Time Seen by Provider: 08/04/20 12:55 Source: patient Exam Limitations: no limitations Patient Subjective Stated Complaint: pt states that she has been swelling for a while (3-4 weeks) and her primary doctor told her to come here, pt is on diur etics Triage Nursing Assessment: Pt brought to the ER by friends, hypertensive, swelling to edwin lower ext, swelling to abdomen, pain to RUQ with palpatation, pulses normal, skin n/w/d Physician History: 60 years old female with history of congestive heart failure, hypertension, tobacco abuse/COPD presented in the ER with chief complaint of bilateral lower extremity swelling for the last 3 to 4 weeks with progressive worsening. Patient reports having chest tightness pressure and feeling shortness of breath with lying flat which started recently and has to use 2-3 pillows to keep yourself propped up. She continues to smoke but denies any shortness of breath with exertion. Denies any chest pain otherwise. Has chronic smoker cough which is not any worse than usual. Denies fever or chills. Patient thinks her Lasix 20 mg twice daily does not seem to be working well. She is also complaining of off-and-on right flank pain for the last couple of days without any urinary complaint. No nausea or vomiting. Timing/Duration: week(s) (3), constant, gradual onset, worse Severity: moderate Associated Symptoms: shortness of breath, weakness, No vomiting, No abdominal pain, No chest pain Allergies/Adverse Reactions: penicillin G Allergy (Intermediate, Verified 08/04/20 13:03) CAN'T MOVE Sulfa (Sulfonamide Antibiotics) Allergy (Intermediate, Verified 08/04/20 13:03) Hives cephalexin [From Keflex] Adverse Reaction (Intermediate, Verified 08/04/20 13:03) nausea/vomiting Home Medications: Levothyroxine Sodium 50 Mcg [Synthroid 50 Mcg] 100 mcg PO DAILY 05/02/16 [History] Carvedilol 3.125 mg [Coreg 3.125 MG] 3.125 mg PO DAILY 09/28/17 [History] Furosemide 20 mg [Lasix 20 mg] 20 mg PO BID 09/17/19 [History] Potassium Chloride [K-Tab ER] 8 meq PO BID 08/04/20 [History] Hx Tetanus, Diphtheria Vaccination/Date Given: No Hx Influenza Vaccination/Date Given: Yes Hx Pneumococcal Vaccination/Date Given: Yes Travel Risk - International Travel Have you traveled outside of the country in past 3 weeks: No - Coronavirus Screening Are you exhibiting any of the following symptoms?: No Close contact with a COVID-19 positive Pt in past 14-21 Days: No - Vaccine Status Have you recieved a Covid-19 vaccination: Yes Sap Director: Jingit - Vaccination Dates Date of 2cond Vaccination (if applicable): 04/26/2020 - Review of Systems Constitutional: No Symptoms Eyes: No Symptoms Ears, Nose, & Throat: No Symptoms Respiratory: Dyspnea Cardiac: Chest Pain, Edema, Orthopnea Abdominal/Gastrointestinal: No Symptoms Genitourinary Symptoms: No Symptoms Musculoskeletal: No Symptoms Neurological: No Symptoms Psychological: No Symptoms Endocrine: No Symptoms Hematologic/Lymphatic: No Symptoms Immunological/Allergic: No Symptoms - Past Medical History Pertinent Past Medical History: Yes Neurological History: No Pertinent History ENT History: No Pertinent History Cardiac History: Hypertension Respiratory History: Asthma Endocrine Medical History: Hypothyroidism Musculoskeletal History: Arthritis GI Medical History: Ulcer History: No Pertinent History Psycho-Social History: No Pertinent History Female Reproductive Disorders: No Pertinent History - Past Surgical History Past Surgical History: Yes Neuro Surgical History: No Pertinent History Cardiac: No Pertinent History Respiratory: No Pertinent History Gastrointestinal: No Pertinent History Genitourinary: No Pertinent History Musculoskeletal: No Pertinent History Female Surgical History: Hysterectomy, Other Other Surgical History: bartholins cyst excision - Social History Smoking Status: Current every day smoker How long have you smoked: years Exposure to second hand smoke: Yes Drug Use: none Patient Lives Alone: Yes - Female History Hx Now: No - Nursing Vital Signs Nursing Vital Signs: Initial Vital Signs Temperature 98.1 F 08/04/20 12:52 Pulse Rate 72 08/04/20 12:52 Respiratory Rate 21 08/04/20 12:52 Blood Pressure 143/111 08/04/20 12:52 O2 Sat by Pulse Oximetry 96 08/04/20 12:52 Pain Scale Pain Intensity 4 - Physical Exam General Appearance: no apparent distress, alert Eye Exam: PERRL/EOMI, eyes nml inspection Ears, Nose, Throat Exam: normal ENT inspection, pharynx normal Neck Exam: normal inspection, supple, full range of motion Respiratory Exam: normal breath sounds, rhonchi, wheezing Cardiovascular Exam: regular rate/rhythm, normal heart sounds Gastrointestinal/Abdomen Exam: soft, normal bowel sounds, tenderness (Mild tend erness right flank/right upper quadrant), No guarding Back Exam: normal inspection, normal range of motion Extremity Exam: normal range of motion, pedal edema (2+ bilaterally), No inflammation, No tenderness Neurologic Exam: alert, oriented x 3 Skin Exam: normal color SpO2 Interpretation: normal SpO2: 96 O2 Delivery: Room Air - Course EKG Interpreted by Me: RATE ([id number]), Sinus Rhythm, NORMAL AXIS, NORMAL INTERVALS, NORMAL QRS Ordered Tests: Active Orders 24 hr Category Date Time Status Medical Officer Psychiatry STAT Care 08/04/20 13:09 Active EKG-ER Only STAT Care 08/04/20 13:09 Active IV Insertion STAT Care 08/04/20 13:09 Active ABDOMEN AND PELVIS W/0 CONTRAS [CT] Stat Exams 08/04/20 13:58 Completed CHEST 1 VIEW (PORTABLE) Stat Exams 08/04/20 13:09 Completed CBC W DIFF Stat Lab 08/04/20 13:09 Completed CMP Stat Lab 08/04/20 13:09 Completed LIPASE Stat Lab 08/04/20 14:24 Completed MAGNESIUM Stat Lab 08/04/20 13:09 Completed NT PRO BNP Stat Lab 08/04/20 13:09 Completed TROPONIN Q3H Lab 08/04/20 13:15 Completed TROPONIN Q3H Lab 08/04/20 16:15 Ordered TROPONIN Q3H Lab 08/04/20 19:15 Ordered TROPONIN Q3H Lab 08/04/20 22:15 Ordered TROPONIN Q3H Lab 08/05/20 01:15 Ordered UA W/RFX UR CULTURE Stat Lab 08/04/20 13:36 Completed Medication Summary Discontinued Medications Generic Name Dose Route Start Last Admin Trade Name Freq PRN Reason Stop Dose Admin Furosemide 40 mg 08/04/20 13:09 08/04/20 13:13 Lasix 40 Mg/4 Ml IV 08/04/20 13:10 40 mg STAT ONE Administration Furosemide Confirm 08/04/20 13:11 Lasix 40 Mg/4 Ml Administered 08/04/20 13:12 Dose 40 mg .ROUTE .OLX-MED ONE Lab/Rad Data: Laboratory Result Diagrams 08/04/20 13:09 08/04/20 13:09 Laboratory Results 08/04/20 08/04/20 08/04/20 Range/Units 14:24 13:36 13:15 WBC (4.0-10.5) K/mm3 RBC (4.1-5.4) M/mm3 Hgb (12.0-16.0) gm/dl Hct (35-47) % MCV (78-100) fl MCH (26-32) pg MCHC (32-36) g/dl RDW (11.5-14.0) % Plt Count (150-450) K/mm3 MPV (7.5-11.0) fl Gran % (36.0-66.0) % Eos # (Auto) (0-0.5) Absolute Lymphs (auto) (1.0-4.6) Absolute Monos (auto) (0.0-1.3) Lymphocytes % (24.0-44.0) % Monocytes % (0.0-12.0) % Eosinophils % (0.00-5.0) % Basophils % (0.0-0.4) % Absolute Granulocytes (1.4-6.9) Basophils # (0-0.4) Sodium (137-145) mmol/L Potassium (3.5-5.1) mmol/L Chloride (98-107) mmol/L Carbon Dioxide (22-30) mmol/L Anion Gap (5-15) MEQ/L BUN (7-17) mg/dL Creatinine (0.52-1.04) mg/dL Estimated GFR ML/MIN Glucose (74-106) mg/dL Calcium (8.4-10.2) mg/dL Magnesium (1.6-2.3) mg/dL Total Bilirubin (0.2-1.3) mg/dL AST (14-36) U/L ALT (0-35) U/L Alkaline Phosphatase (38-126) U/L Troponin I < 0.012 (0.000-0.034) ng/mL NT-Pro-B Natriuret Pep (0-900) pg/mL Serum Total Protein (6.3-8.2) g/dL Albumin (3.5-5.0) g/dL Lipase 44 (23-300) U/L Urine Color STRAW (YELLOW) Urine Appearance CLEAR (CLEAR) Urine pH 6.0 (5-6) Ur Specific [place] 1.008 (1.005-1.025) Urine Protein NEGATIVE (Negative) Urine Ketones NEGATIVE (NEGATIVE) Urine Blood NEGATIVE (0-5) Chaz/ul Urine Nitrite NEGATIVE (NEGATIVE) Urine Bilirubin NEGATIVE (NEGATIVE) Urine Urobilinogen NEGATIVE (0-1) mg/dL Ur Leukocyte Esterase NEGATIVE (NEGATIVE) Urine WBC (Auto) NONE (0-5) /HPF Urine RBC (Auto) NONE (0-2) /HPF U Hyaline Cast (Auto) 0-2 (0-2) /LPF U Epithel Cells (Auto) RARE (FEW) /HPF Urine Mucus (Auto) SLIGHT (NEGATIVE) /HPF Urine Culture Reflexed NO (NO) Urine Glucose NEGATIVE (NEGATIVE) mg/dL 08/04/20 08/04/20 Range/Units 13:09 13:09 WBC 11.9 H (4.0-10.5) K/mm3 RBC 4.82 (4.1-5.4) M/mm3 Hgb 14.0 (12.0-16.0) gm/dl Hct 43.8 (35-47) % MCV 90.9 (78-100) fl MCH 29.0 (26-32) pg MCHC 32.0 (32-36) g/dl RDW 14.9 H (11.5-14.0) % Plt Count 396 (150-450) K/mm3 MPV 10.6 (7.5-11.0) fl Gran % 68.3 H (36.0-66.0) % Eos # (Auto) 0.60 H (0-0.5) Absolute Lymphs (auto) 2.28 (1.0-4.6) Absolute Monos (auto) 0.83 (0.0-1.3) Lymphocytes % 19.2 L (24.0-44.0) % Monocytes % 7.0 (0.0-12.0) % Eosinophils % 5.1 H (0.00-5.0) % Basophils % 0.4 (0.0-0.4) % Absolute Granulocytes 8.12 H (1.4-6.9) Basophils # 0.05 (0-0.4) Sodium 136 L (137-145) mmol/L Potassium 4.2 (3.5-5.1) mmol/L Chloride 103 (98-107) mmol/L Carbon Dioxide 26 (22-30) mmol/L Anion Gap 11.6 (5-15) MEQ/L BUN 8 (7-17) mg/dL Creatinine 0.73 (0.52-1.04) mg/dL Estimated GFR > 60.0 ML/MIN Glucose 89 (74-106) mg/dL Calcium 9.2 (8.4-10.2) mg/dL Magnesium 2.1 (1.6-2.3) mg/dL Total Bilirubin 0.40 (0.2-1.3) mg/dL AST 19 (14-36) U/L ALT 15 (0-35) U/L Alkaline Phosphatase 141 H (38-126) U/L Troponin I (0.000-0.034) ng/mL NT-Pro-B Natriuret Pep 281 (0-900) pg/mL Serum Total Protein 7.8 (6.3-8.2) g/dL Albumin 4.0 (3.5-5.0) g/dL Lipase (23-300) U/L Urine Color (YELLOW) Urine Appearance (CLEAR) Urine pH (5-6) Ur Specific [place] (1.005-1.025) Urine Protein (Negative) Urine Ketones (NEGATIVE) Urine Blood (0-5) Chaz/ul Urine Nitrite (NEGATIVE) Urine Bilirubin (NEGATIVE) Urine Urobilinogen (0-1) mg/dL Ur Leukocyte Esterase (NEGATIVE) Urine WBC (Auto) (0-5) /HPF Urine RBC (Auto) (0-2) /HPF U Hyaline Cast (Auto) (0-2) /LPF U Epithel Cells (Auto) (FEW) /HPF Urine Mucus (Auto) (NEGATIVE) /HPF Urine Culture Reflexed (NO) Urine Glucose (NEGATIVE) mg/dL - Progress Progress: improved, re-examined Progress Note: 08/04/20 15:39 60 years old is evaluated for bilateral lower extremity swelling with some orthopnea and right flank pain. She is given IV Lasix. EKG showed normal sinus rhythm. Chest x-ray negative for acute vascular congestion, pneumonic infiltrate or cardiomegaly. Has normal BNP and troponin. Grossly unremarkable chemistries, no UTI. Her pains CT abdomen pelvis without contrast which is negative for any stone, obstruction, colitis, does have mildly distended gallbladder without any pericholecystic fluid or stones suggesting acute cholecystitis. Normal appendix. Patient has minimal discomfort on reevaluation. I have recommended increasing dose of Lasix in the morning on alternate days for next few days and follow-up with her primary care and prop ping up her legs and decrease salt intake. At this point I do not think patient needs further work-up. Does not have any chest pain and the symptoms have been going on for quite some time and do not need to trend cardiac enzymes. Stable for discharge with outpatient follow-up Counseled pt/family regarding: lab results, diagnosis, need for follow-up, rad results - Departure Departure Disposition: Home Clinical Impression: Bilateral lower extremity edema, Right flank pain Condition: Stable Critical Care Time: No Referrals: ROBIN PEACOCK CAD DEVELOPER [Primary Care Provider] - Follow Up with PCP/3 days Instructions: Dependent Edema (DC) Additional Instructions: Take low-salt diet. Take 40 mg Lasix in the morning on alternate days for next 1 week, follow-up with primary care for reevaluation. Keep your legS propped up, put a pillows underneath your legs while sleeping. Return to ER for worsening swelling, flank pain or having difficulty breathing.
[2020-08-04 13:40] LABS: Absolute Neutrophil Ct (ANC) 8.12 (1.4-6.9); BASOPHIL % 0.4 % (0.0-0.4); Basophil (Absolute #) 0.05 (0-0.4); Eosinophil % 5.1 % (0.00-5.0); Hematocrit 43.8 % (35-47); Lymphocyte (Absolute #) 2.28 (1.0-4.6); Lymphocytes % 19.2 % (24.0-44.0); Mean Cell Volume 90.9 fl (78-100); Mean Platelet Volume 10.6 fl (7.5-11.0); Monocyte (Absolute #) 0.83 (0.0-1.3); Neutrophil % 68.3 % (36.0-66.0); Platelet Count 396 K/mm3 (150-450); Red Blood Count 4.82 M/mm3 (4.1-5.4); Red Cell Distribution Width 14.9 % (11.5-14.0); White Blood Count 11.9 K/mm3 (4.0-10.5)
--- NOTE | 2020-08-04 13:45 | XRAY ---
Exam: AP upright portable chest film from 08/04/2020. Comparison: AP upright portable chest film from 09/17/2019. Indication: CHF. Findings: The heart size and contour are normal. There is again noted be mild tortuosity of the descending thoracic aorta. A calcified lymph node is again seen within the subcarinal/pericarinal projection. The remainder of the grady and mediastinal structures appears unchanged and unremarkable. The lungs are well inflated. No air space infiltrates, vascular congestion, pneumothorax, or pleural fluid is seen. Minimal curvilinear atelectasis at the lateral left lung base on 09/17/2019 is no longer seen. No acute osseous process is seen. Slight convexity of the upper mid thoracic spine toward the right is again seen. Impression: 1. No air space infiltrates, congestive heart failure/pulmonary edema, or other evidence of acute cardiopulmonary disease is seen.
[2020-08-04 13:57] LABS: ALKALINE PHOSPHATASE 141 U/L (38-126); ANION GAP 11.6 MEQ/L (5-15); BLOOD UREA NITROGEN 8 mg/dL (7-17); CHLORIDE 103 mmol/L (98-107); Calcium 9.2 mg/dL (8.4-10.2); Carbon Dioxide 26 mmol/L (22-30); Creatinine 1 0.73 mg/dL (0.52-1.04); EST GLOMERULAR FILTRATION RATE > 60.0 ML/MIN; Glucose 89 mg/dL (74-106); MAGNESIUM 2.1 mg/dL (1.6-2.3); NT PRO BNP 281 pg/mL (0-900); Potassium 4.2 mmol/L (3.5-5.1); SGOT/AST 19 U/L (14-36); SGPT/ALT 15 U/L (0-35); SODIUM 136 mmol/L (137-145); Total Protein 7.8 g/dL (6.3-8.2)
[2020-08-04 14:21] LABS: Appearance CLEAR (CLEAR); Bilirubin NEGATIVE (NEGATIVE); Blood NEGATIVE Ery/ul (0-5); Epithelial Cells RARE /HPF (FEW); Glucose NEGATIVE (NEGATIVE); Hyaline Casts 0-2 /LPF (0-2); Ketones NEGATIVE (NEGATIVE); Leukocyte Esterase NEGATIVE (NEGATIVE); Mucus SLIGHT /HPF (NEGATIVE); Nitrite NEGATIVE (NEGATIVE); Protein,Urine Dip NEGATIVE (Negative); Specific Gravity 1.008 (1.005-1.025); Urobilinogen NEGATIVE mg/dL (0-1)
--- NOTE | 2020-08-04 15:31 | XRAY ---
Exam: CT of the abdomen and pelvis without IV contrast from 08/04/2020. CTDI: 22.10 mGy Comparison: CT of the abdomen and pelvis without IV contrast from 09/28/2017. Indication: 60-year-old female with right flank pain for one week; no visible blood in urine; past history of hysterectomy. Technique: Non-IV contrast axial images were obtained through the abdomen and pelvis. Reconstructed coronal and sagittal images were created and reviewed. No oral contrast was given. Findings: The kidneys appear of average size and shape. No definite renal calculi or hydronephrosis is seen. The ureters appear of unremarkable diameter without definite ureterolith. I note some mild vascular calcification and calcified phleboliths within the lower pelvis bilaterally. The urinary bladder appears grossly unremarkable without evidence of posterior layering stone. The visualized lung bases are free of active disease. Scant curvilinear scarring/atelectasis at the posterior medial left lung base is seen. I again note a small retrocardiac hiatal hernia. The liver is of unremarkable size and uniform attenuation. No intrahepatic biliary duct distention is seen. The gallbladder is distended and reveals no dense calcifications within it. The spleen is of normal size and is remarkable for scattered calcified granulomas. The pancreas and adrenal glands appear unremarkable. Atherosclerotic vascular calcification is seen within the abdominal aorta and iliac arteries, as well as the common femoral arteries. No abdominal aortic aneurysm or abnormal retroperitoneal lymphadenopathy is seen. A small, lobular shaped, fat-containing supraumbilical hernia is seen which appears slightly larger than that noted on 09/28/2017. A bowel containing ventral hernia is not seen. There is no free intraperitoneal air. The bowel is not distended. Some scattered stool is seen throughout the colon. There is no evidence of bowel obstruction or bowel wall thickening. Within the posterior aspect of the proximal ascending colon, there is an 8 mm fecalith on axial image #101. I see no findings of appendicitis within the right lower quadrant. The uterus is surgically absent. The urinary bladder appears unremarkable. No pelvic adnexal mass or abnormal pelvic lymphadenopathy is seen. There is no free intraperitoneal fluid within the pelvis. The skeleton reveals no evidence of fracture or bone destruction. Minimal vacuum disc phenomena is seen along the left margin of L5-S1. Mild facet joint osteoarthritic changes are seen at L4-L5 and L5-S1. In addition, I again see some sclerotic changes about each sacroiliac joint, but more on the iliac side. I believe there is some mild narrowing of both sacroiliac joints, as well as some small erosions about each sacroiliac joint. Major differential diagnosis is between a seronegative spondyloarthropathy with sacroiliitis versus osteitis condensans ilii (favor former). Correlate clinically. Impression: 1. I see no evidence of acute obstructive uropathy, particularly on the right. No hydronephrosis or definite renal or ureteral calculi are seen. Nor do I detect a urinary bladder stone. 2. Small hiatal hernia and mild lobular fat-containing supraumbilical hernia are noted. 3. No other acute process is seen within the abdomen or pelvis. 4. Findings suggestive of seronegative spondyloarthropathy with bilateral sacroiliitis versus osteitis condensans ilii (favor former). The CT findings are similar to 09/28/2017.
[2020-08-04 15:43] VITALS: O2SAT 96
[2020-08-04 15:47] VITALS: BP 156/91; PULSE 72
== END 2020-08-04 15:50 | disposition home or self-care (01) ==
LOC: ED 12:48
DX: R60.0 Localized edema (principal); R10.9 Unspecified abdominal pain; E03.9 Hypothyroidism, unspecified
CPT/HCPCS: 36000; 36415; 71045; 74176; 80053; 81001; 83690; 83735; 83880; 84484; 85025; 93005; 93041; 96374; 99284; J1940

== ENCOUNTER 2021-10-02 12:21 | Inpatient (IN) | payer OTHER ==
--- NOTE | 2021-10-02 13:11 | ERPHSYRPT ---
- History of Present Illness Source: patient Exam Limitations: other (Poor historian) Patient Subjective Stated Complaint: pt here for swelling and blisters to both feet for a week, pt has surgery on right knee september 16. has apt next week with surgeon Triage Nursing Assessment: pt arrived per wc, alert, resp easy, skin w/d/p. face mask in place,has swelling to lower legs with blisters and redness to top of both feet, has slight redness to [facility], Physician History: 61 yo morbidly obese WF w B LE edema/erythema/pain x 4 days. Pt had a R Total Knee replacement on 09/19/21 at [facility]. She denies injury/fever/nausea/vomiting/diarrhea. Method of Injury: other (No injury) Occurred: other (4 days) Quality: constant, aching Lower Extremities Pain: leg: left, foot: left Modifying Factors: Improves With: movement Associated Symptoms: none Allergies/Adverse Reactions: penicillin G Allergy (Intermediate, Verified 08/04/20 13:03) CAN'T MOVE Sulfa (Sulfonamide Antibiotics) Allergy (Intermediate, Verified 08/04/20 13:03) Hives cephalexin [From Keflex] Adverse Reaction (Intermediate, Verified 08/04/20 13:03) nausea/vomiting Home Medications: Levothyroxine Sodium 50 Mcg [Synthroid 50 Mcg] 100 mcg PO DAILY 05/02/16 [History] Carvedilol 3.125 mg [Coreg 3.125 MG] 3.125 mg PO DAILY 09/28/17 [History] Furosemide 20 mg [Lasix 20 mg] 20 mg PO DAILY PRN 09/17/19 [History] Potassium Chloride [K-Tab ER] 8 meq PO DAILY PRN 08/04/20 [History] Aspirin EC 325 mg [Ecotrin 325 MG] 325 mg PO DAILY 10/02/21 [History] Furosemide 40 mg [Lasix 40 MG] 40 mg PO UD 10/02/21 [History] Hydrocodone/Acetaminophen [Hydrocodone-Acetamin 10-325 mg] 1 each PO Q4H PRN 10/02/21 [History] Hx Tetanus, Diphtheria Vaccination/Date Given: No Hx Influenza Vaccination/Date Given: Yes Hx Pneumococcal Vaccination/Date Given: Yes Immunizations Up to Date: Yes Travel Risk - International Travel Have you traveled outside of the country in past 3 weeks: No - Coronavirus Screening Are you exhibiting any of the following symptoms?: No - Vaccine Status Have you recieved a Covid-19 vaccination: Yes [employer]: Pfizer - Vaccination Dates Date of 2cond Vaccination (if applicable): 04/26/2020 - Review of Systems Constitutional: No Symptoms Eyes: No Symptoms Ears, Nose, & Throat: No Symptoms Respiratory: No Symptoms Cardiac: No Symptoms Abdominal/Gastrointestinal: No Symptoms Genitourinary Symptoms: No Symptoms Skin: Skin Lesions Neurological: No Symptoms Psychological: No Symptoms Endocrine: No Symptoms Hematologic/Lymphatic: No Symptoms Immunological/Allergic: No Symptoms - Past Medical History Pertinent Past Medical History: Yes Neurological History: No Pertinent History ENT History: No Pertinent History Cardiac History: Hypertension Respiratory History: Asthma Endocrine Medical History: Hypothyroidism Musculoskeletal History: Arthritis GI Medical History: Ulcer History: No Pertinent History Psycho-Social History: No Pertinent History Female Reproductive Disorders: No Pertinent History - Past Surgical History Past Surgical History: Yes Neuro Surgical History: No Pertinent History Cardiac: No Pertinent History Respiratory: No Pertinent History Gastrointestinal: No Pertinent History Genitourinary: No Pertinent History Musculoskeletal: No Pertinent History, Orthopedic Surgery Female Surgical History: Hysterectomy, Other Other Surgical History: bartholins cyst excision, left ankle, left knee - Social History Smoking Status: Current every day smoker How long have you smoked: years Exposure to second hand smoke: Yes Drug Use: none Patient Lives Alone: Yes Significant Family History: no pertinent family hx - Nursing Vital Signs Nursing Vital Signs: Initial Vital Signs Pulse Rate 62 10/02/21 12:56 Respiratory Rate 18 10/02/21 12:56 Blood Pressure 189/79 10/02/21 12:56 O2 Sat by Pulse Oximetry 96 10/02/21 12:56 Pain Scale Pain Intensity 2 Hypertensive - Physical Exam General Appearance: no apparent distress Eyes, Ears, Nose, Throat Exam: normal ENT inspection, TMs normal, pharynx normal, moist mucous membranes Neck Exam: normal inspection, non-tender, supple, full range of motion, No Brudzinski, No Kernig's, No meningismus, No carotid bruit Cardiovascular/Respiratory Exam: normal breath sounds, regular rate/rhythm, heart sounds normal, no ecchymosis Gastrointestinal/Abdominal Exam: non-tender, soft Back Exam: normal inspection, normal range of motion, No CVA tenderness, No vertebral tenderness Hips Exam: bilateral: non-tender, normal inspection, normal range of motion, no evidence of injury Legs Exam: bilateral leg: other (B lower leg edema/erythema/scattered bullae/open lesion R dorsal foot/marked B TTP) Knees Exam: right knee: other (R TK replacement incision clean/dry/intact) Neuro/Tendon Exam: normal sensation, normal motor functions, normal tendon functions, responds to pain, no evidence tendon injury Mental Status Exam: alert, oriented x 3, cooperative Skin Exam: other (B lower extremity erythema) SpO2 Interpretation: normal SpO2: 96 O2 Delivery: Room Air - Course Nursing assessment & vital signs reviewed: Yes - Radiology Ultrasound Exam Venous Lower Extremity Ultrasound: Other (No DVT B per tech) Ordered Tests: Active Orders 24 hr Category Date Time Status IV Insertion STAT Care 10/02/21 13:28 Completed VENOUS BILATERAL EXTREMITY [US] Stat Exams 10/02/21 15:05 Taken BLOOD CULTURE Stat Lab 10/02/21 15:45 Received CBC W DIFF Stat Lab 10/02/21 13:34 Completed CMP AM.LAB Lab 10/03/21 04:00 Ordered CMP Stat Lab 10/02/21 13:34 Completed D-DIMER QUANTITATIVE Stat Lab 10/02/21 13:34 Completed Lactic Acid Stat Lab 10/02/21 13:30 Completed NT PRO BNP Stat Lab 10/02/21 13:34 Completed TROPONIN Q4H Lab 10/02/21 13:34 Completed TROPONIN Q4H Lab 10/02/21 17:15 Ordered TROPONIN Q4H Lab 10/02/21 21:15 Ordered Transfer Order Routine Transfer 10/02/21 Completed Medication Summary Generic Name Dose Route Start Last Admin Trade Name Freq PRN Reason Stop Dose Admin Enoxaparin Sodium 40 mg 10/03/21 10:00 Enoxaparin Sodium 40 Mg/0.4 Ml Syringe SQ 11/02/21 09:59 DAILY SHARITA Fentanyl Citrate 50 mcg 10/02/21 16:39 Fentanyl Citrate 100 Mcg/2 Ml* Vial IV 10/07/21 16:38 Q4H PRN PRN PAIN Vancomycin HCl 1 gm in 200 mls @ 125 mls/hr 10/02/21 15:27 10/02/21 15:29 Vancomycin 1 Gram/200 Ml Bag IV 10/02/21 17:02 125 ml/hr STAT ONE 125 mls/hr Administration Ondansetron HCl 4 mg 10/02/21 16:39 Ondansetron Hcl 4 Mg/2 Ml Vial IV 11/01/21 16:38 Q6H PRN PRN NAUSEA/VOMITING Pantoprazole Sodium 40 mg 10/02/21 16:45 Pantoprazole 40 Mg Vial IV 11/01/21 16:44 Q24H [facility] Discontinued Medications Generic Name Dose Route Start Last Admin Trade Name Freq PRN Reason Stop Dose Admin Enoxaparin Sodium 40 mg 10/03/21 10:00 Enoxaparin Sodium 40 Mg/0.4 Ml Syringe SQ 11/02/21 09:59 DAILY [facility] Fentanyl Citrate 50 mcg 10/02/21 15:32 Fentanyl Citrate 100 Mcg/2 Ml* Vial IV 10/07/21 15:31 Q4H PRN PRN PAIN Vancomycin HCl Confirm 10/02/21 15:26 Vancomycin 1 Gram/200 Ml Bag Administered 10/02/21 15:27 Dose 1 gm in 200 mls @ ud IV .STK-MED ONE Vancomycin HCl 1 gm in 200 mls @ 125 mls/hr 10/02/21 15:45 10/02/21 16:37 Vancomycin 1 Gram/200 Ml Bag IV 11/01/21 15:44 Not Given Q12H [facility] Ketorolac Tromethamine 15 mg 10/02/21 13:30 10/02/21 13:31 Ketorolac Tromethamine 30 Mg/Ml Inj IV 10/02/21 13:31 15 mg STAT ONE Administration Ketorolac Tromethamine Confirm 10/02/21 13:30 Ketorolac Tromethamine 30 Mg/Ml Inj Administered 10/02/21 13:31 Dose 30 mg .ROUTE .STK-MED ONE Ondansetron HCl 4 mg 10/02/21 15:28 Ondansetron Hcl 4 Mg/2 Ml Vial IV 11/01/21 15:27 Q6H PRN PRN NAUSEA/VOMITING Pantoprazole Sodium 40 mg 10/03/21 10:00 Pantoprazole 40 Mg Vial IV 11/02/21 09:59 Q24H10 [facility] Lab/Rad Data: Laboratory Result Diagrams 10/02/21 13:34 10/02/21 13:34 Laboratory Results 10/02/21 10/02/21 10/02/21 Range/Units 16:22 13:34 13:34 WBC (4.0-10.5) x10^3/uL RBC (4.1-5.4) x10^6/uL Hgb (12.0-16.0) g/dL Hct (35-47) % MCV (78-100) fL MCH (26-32) pg MCHC (32-36) g/dL RDW (11.5-14.0) % Plt Count (150-450) x10^3/uL MPV (7.5-11.0) fL Gran % (36.0-66.0) % Immature Gran % (Auto) (0.00-0.4) % Nucleat RBC Rel Count (0.00-0.1) % Eos # (Auto) (0-0.5) x10^3/uL Immature Gran # (Auto) (0.00-0.03) x10^3u/L Absolute Lymphs (auto) (1.0-4.6) x10^3/uL Absolute Monos (auto) (0.0-1.3) x10^3/uL Absolute Nucleated RBC (0.00-0.01) x10^3u/L Lymphocytes % (24.0-44.0) % Monocytes % (0.0-12.0) % Eosinophils % (0.00-5.0) % Basophils % (0.0-0.4) % Absolute Granulocytes (1.4-6.9) x10^3/uL Basophils # (0-0.4) x10^3/uL D-Dimer 3.07 H* (0.0-0.50) mg/L Sodium (137-145) mmol/L Potassium (3.5-5.1) mmol/L Chloride (98-107) mmol/L Carbon Dioxide (22-30) mmol/L Anion Gap (5-15) MEQ/L BUN (7-17) mg/dL Creatinine (0.52-1.04) mg/dL Estimated GFR ML/MIN Glucose (74-106) mg/dL Lactic Acid (0.4-2.0) Calcium (8.4-10.2) mg/dL Total Bilirubin (0.2-1.3) mg/dL AST (14-36) U/L ALT (0-35) U/L Alkaline Phosphatase (38-126) U/L Troponin I < 0.012 (0.000-0.034) ng/mL NT-Pro-B Natriuret Pep (0-900) pg/mL Serum Total Protein (6.3-8.2) g/dL Albumin (3.5-5.0) g/dL Influenza Type A Ag NEGATIVE (NEGATIVE) Influenza Type B Ag NEGATIVE (NEGATIVE) RSV (PCR) NEGATIVE (Negative) SARS-CoV-2 (PCR) NEGATIVE (NEGATIVE) 10/02/21 10/02/21 10/02/21 Range/Units 13:34 13:34 13:30 WBC 13.9 H (4.0-10.5) x10^3/uL RBC 4.08 L (4.1-5.4) x10^6/uL Hgb 11.9 L (12.0-16.0) g/dL Hct 37.6 (35-47) % MCV 92.2 (78-100) fL MCH 29.2 (26-32) pg MCHC 31.6 L (32-36) g/dL RDW 14.5 H (11.5-14.0) % Plt Count 388 (150-450) x10^3/uL MPV 9.6 (7.5-11.0) fL Gran % 66.0 (36.0-66.0) % Immature Gran % (Auto) 0.4 (0.00-0.4) % Nucleat RBC Rel Count 0.0 (0.00-0.1) % Eos # (Auto) 1.10 H (0-0.5) x10^3/uL Immature Gran # (Auto) 0.06 H (0.00-0.03) x10^3u/L Absolute Lymphs (auto) 2.33 (1.0-4.6) x10^3/uL Absolute Monos (auto) 1.16 (0.0-1.3) x10^3/uL Absolute Nucleated RBC 0.00 (0.00-0.01) x10^3u/L Lymphocytes % 16.7 L (24.0-44.0) % Monocytes % 8.3 (0.0-12.0) % Eosinophils % 7.9 H (0.00-5.0) % Basophils % 0.7 (0.0-0.4) % Absolute Granulocytes 9.19 H (1.4-6.9) x10^3/uL Basophils # 0.10 (0-0.4) x10^3/uL D-Dimer (0.0-0.50) mg/L Sodium 136 L (137-145) mmol/L Potassium 4.2 (3.5-5.1) mmol/L Chloride 101 (98-107) mmol/L Carbon Dioxide 31 H (22-30) mmol/L Anion Gap 8.8 (5-15) MEQ/L BUN 7 (7-17) mg/dL Creatinine 0.86 (0.52-1.04) mg/dL Estimated GFR > 60.0 ML/MIN Glucose 92 (74-106) mg/dL Lactic Acid 1.1 (0.4-2.0) Calcium 8.9 (8.4-10.2) mg/dL Total Bilirubin 0.40 (0.2-1.3) mg/dL AST 17 (14-36) U/L ALT 15 (0-35) U/L Alkaline Phosphatase 145 H (38-126) U/L Troponin I (0.000-0.034) ng/mL NT-Pro-B Natriuret Pep 115 (0-900) pg/mL Serum Total Protein 7.1 (6.3-8.2) g/dL Albumin 3.6 (3.5-5.0) g/dL Influenza Type A Ag (NEGATIVE) Influenza Type B Ag (NEGATIVE) RSV (PCR) (Negative) SARS-CoV-2 (PCR) (NEGATIVE) - Progress Progress: improved Progress Note: 10/02/21 17:00 Blood cultures x2 1gm IV Vancomycin 10/02/21 17:02 15mg IV Toradol w improvement in pain Counseled pt/family regarding: lab results, diagnosis, rad results - Departure Departure Disposition: Observation Clinical Impression: Cellulitis Condition: Stable Critical Care Time: No
[2021-10-02] MEDS ORDERED: TORAdol 30 mg Injection ONE (13:30)
[2021-10-02] MEDS ORDERED: TORAdol 30 mg Injection IV ONE (13:30)
[2021-10-02 13:34] LABS: Absolute Neutrophil Ct (ANC) 9.19 x10^3/uL (1.4-6.9); Eosinophil % 7.9 % (0.00-5.0); Hematocrit 37.6 % (35-47); Hemoglobin 11.9 g/dL (12.0-16.0); Lymphocyte (Absolute #) 2.33 x10^3/uL (1.0-4.6); Lymphocytes % 16.7 % (24.0-44.0); Mean Cell Volume 92.2 fL (78-100); Mean Corpuscular Hemoglobin 29.2 pg (26-32); Mean Corpuscular Hgb Concent. 31.6 g/dL (32-36); Mean Platelet Volume 9.6 fL (7.5-11.0); Monocyte (Absolute #) 1.16 x10^3/uL (0.0-1.3); Monocytes % 8.3 % (0.0-12.0); Platelet Count 388 x10^3/uL (150-450); Red Blood Count 4.08 x10^6/uL (4.1-5.4); Red Cell Distribution Width 14.5 % (11.5-14.0); White Blood Count 13.9 x10^3/uL (4.0-10.5)
[2021-10-02 13:56] LABS: ALBUMIN 3.6 g/dL (3.5-5.0); ALKALINE PHOSPHATASE 145 U/L (38-126); ANION GAP 8.8 MEQ/L (5-15); BLOOD UREA NITROGEN 7 mg/dL (7-17); CHLORIDE 101 mmol/L (98-107); Calcium 8.9 mg/dL (8.4-10.2); Carbon Dioxide 31 mmol/L (22-30); Creatinine 1 0.86 mg/dL (0.52-1.04); EST GLOMERULAR FILTRATION RATE > 60.0 ML/MIN; Glucose 92 mg/dL (74-106); NT PRO BNP 115 pg/mL (0-900); Potassium 4.2 mmol/L (3.5-5.1); SGOT/AST 17 U/L (14-36); SGPT/ALT 15 U/L (0-35); SODIUM 136 mmol/L (137-145); Total Protein 7.1 g/dL (6.3-8.2)
[2021-10-02] MEDS ORDERED: VANCOMYCIN 1 GRAM/200 ML BAG 1 GM/200 ML PIGGYBACK IV ONE ×2 (15:26→15:27)
[2021-10-02] MEDS ORDERED: Zofran 4 MG/2 ML VIAL IV PRN ×2 (15:28→16:39)
[2021-10-02] MEDS ORDERED: SUBLIMAZE 100 MCG/2 ML IV PRN (15:32)
[2021-10-02 16:04] LABS: INFLUENZA A NEGATIVE (NEGATIVE); INFLUENZA B NEGATIVE (NEGATIVE); RESPIRATORY SYNCTIAL VIRUS NEGATIVE (Negative); SARS-CoV-2 Xpert Express NEGATIVE (NEGATIVE)
[2021-10-02] MEDS: VANCOMYCIN 1 GRAM/200 ML BAG 1 GM/200 ML PIGGYBACK IV SCH (16:37)
[2021-10-02] MEDS ORDERED: PROTONIX 40 MG IV IV SCH (16:45)
[2021-10-02] MEDS ORDERED: ENOXAPARIN SODIUM SQ ONE (17:01)
[2021-10-02] MEDS: SUBLIMAZE 100 MCG/2 ML IV PRN ×2 (17:03→21:14)
[2021-10-02] MEDS: ENOXAPARIN SODIUM SQ SCH (17:03)
--- NOTE | 2021-10-02 19:33 | XRAY ---
Indication: Edema. Elevated d-dimer. 2-dimensional sonogram and color Doppler imaging of the major venous vessels of the left and right leg performed. Comparison: None No thrombus seen in the examined deep venous vessels of the left and right leg including greater saphenous vein. Veins demonstrate normal compressibility. Venous waveforms are normal with and without augmentation. Impression: Left and right legs negative for DVT. Comment: Preliminary report was given.
[2021-10-03] MEDS: SUBLIMAZE 100 MCG/2 ML IV PRN ×6 (01:28→23:06)
[2021-10-03 04:54] LABS: Eosinophil % 8.2 % (0.00-5.0); Eosinophil (Absolute #) 1.04 x10^3/uL (0-0.5); Hematocrit 34.2 % (35-47); Lymphocyte (Absolute #) 2.41 x10^3/uL (1.0-4.6); Lymphocytes % 19.1 % (24.0-44.0); Mean Cell Volume 90.5 fL (78-100); Mean Corpuscular Hemoglobin 29.1 pg (26-32); Mean Corpuscular Hgb Concent. 32.2 g/dL (32-36); Monocyte (Absolute #) 0.92 x10^3/uL (0.0-1.3); Monocytes % 7.3 % (0.0-12.0); Neutrophil % 64.2 % (36.0-66.0); Platelet Count 372 x10^3/uL (150-450); Red Blood Count 3.78 x10^6/uL (4.1-5.4); Red Cell Distribution Width 14.5 % (11.5-14.0); White Blood Count 12.6 x10^3/uL (4.0-10.5)
[2021-10-03 05:19] LABS: ALBUMIN 3.2 g/dL (3.5-5.0); ALKALINE PHOSPHATASE 124 U/L (38-126); ANION GAP 7.6 MEQ/L (5-15); BLOOD UREA NITROGEN 8 mg/dL (7-17); CHLORIDE 102 mmol/L (98-107); Calcium 8.6 mg/dL (8.4-10.2); Carbon Dioxide 28 mmol/L (22-30); EST GLOMERULAR FILTRATION RATE > 60.0 ML/MIN; Glucose 100 mg/dL (74-106); Potassium 4.3 mmol/L (3.5-5.1); SGOT/AST 17 U/L (14-36); SGPT/ALT 14 U/L (0-35); SODIUM 133 mmol/L (137-145); Total Protein 6.4 g/dL (6.3-8.2)
[2021-10-03] MEDS: VENTOLIN COMMON CANISTER IH PRN (05:19)
[2021-10-03] MEDS ORDERED: SUBLIMAZE 100 MCG/2 ML ONE (05:49)
[2021-10-03] MEDS ORDERED: PROTONIX 40 MG IV IV SCH (10:00)
[2021-10-03] MEDS ORDERED: ENOXAPARIN SODIUM SQ SCH (10:00)
[2021-10-03] MEDS: PROTONIX 40 MG IV IV SCH (10:33)
[2021-10-03] MEDS: VANCOMYCIN 1 GRAM/200 ML BAG 1 GM/200 ML PIGGYBACK IV SCH ×2 (10:35→21:08)
[2021-10-03] MEDS: ENOXAPARIN SODIUM SQ SCH (10:37)
[2021-10-03] MEDS ORDERED: HYDROCODONE-ACETAMIN 10-325 MG PO PRN (11:32)
[2021-10-03] MEDS: NICODERM CQ 14 MG TOP SCH (12:22)
[2021-10-03] MEDS: Lasix 40 MG PO SCH (12:22)
[2021-10-03] MEDS: SYNTHROID 100 MCG PO SCH (12:22)
[2021-10-03] MEDS: Coreg 3.125 MG PO SCH (12:22)
[2021-10-03 12:43] LABS: Vitamin B12 < 159 pg/mL (239-931)
--- NOTE | 2021-10-03 14:29 | PCM.HP ---
History of Present Illness - Chief Complaint Chief Complaint: bilat. LE cellulitis History of Present Illness: is a 61 year old female patient of Dr Augustine Boggs who presented to ER with bilateral LE swelling,pain and blisters on the tops of her feet, is S/P right total knee replacemant 09/19/2021. ER reoprts bilateral LE doppler neg for DVT. Ptn also had a spell of left sided chest pain with dyspnea that lasted several minutes before coming to ER. Chest CT negative for PE. PMHx includes HTN, angina,arthritis, hypothyroid,morbid obesity,daily cigarette smoker. Patient is admitted to Med surg for IV antibiotics,wound care. Medications & Allergies Home Medications: Home Medication List Albuterol Sulfate [Albuterol Sulfate Hfa] 2 puff IH Q4-6HPRN PRN #1 [id number] 05/02/16 [Rx Confirmed 10/02/21] Levothyroxine Sodium 50 Mcg [Synthroid 50 Mcg] 100 mcg PO DAILY 05/02/16 [History Confirmed 10/02/21] Carvedilol 3.125 mg [Coreg 3.125 MG] 3.125 mg PO DAILY 09/28/17 [History Confirmed 10/02/21] Potassium Chloride [K-Tab ER] 8 meq PO DAILY PRN 08/04/20 [History Confirmed 10/02/21] Aspirin EC 325 mg [Ecotrin 325 MG] 325 mg PO DAILY 10/02/21 [History Confirmed 10/02/21] Furosemide 40 mg [Lasix 40 MG] 40 mg PO DAILY 10/02/21 [History Confirmed 10/03/21] Hydrocodone/Acetaminophen [Hydrocodone-Acetamin 10-325 mg] 1 each PO Q4H PRN 10/02/21 [History Confirmed 10/02/21] Allergies/Adverse Reactions: Allergies Allergy/AdvReac Type Severity Reaction Status Date / Time penicillin G Allergy Intermediate CAN'T MOVE Verified 08/04/20 13:03 Sulfa (Sulfonamide Allergy Intermediate Hives Verified 08/04/20 13:03 Antibiotics) cephalexin [From Keflex] AdvReac Intermediate nausea/vomi Verified 08/04/20 13:03 ting - Past Medical History Past Medical History: Yes Neurological History: No Pertinent History ENT History: No Pertinent History Cardiac History: Angina, Hypertension Respiratory History: Asthma, Pneumonia Endocrine Medical History: Hypothyroidism Musculoskelatal History: Arthritis GI Medical History: Ulcer History: No Pertinent History Pyscho-Social History: No Pertinent History Reproductive Disorders: Other - Female History Are you now?: No - Past Surgical History Past Surgical History: Yes Neuro Surgical History: No Pertinent History Cardiac History: No Pertinent History Respiratory Surgery: No Pertinent History GI Surgical History: Cholecystectomy Genitourinary Surgical Hx: No Pertinent History Musculskeletal Surgical Hx: No Pertinent History, Orthopedic Surgery Female Surgical History: Hysterectomy, Other Other Surgical History: bartholins cyst excision, left foot surgery, right knee, - Social History Smoking Status: Current every day smoker How long have you smoked: years Exposure to second hand smoke: Yes Alcohol: None Drug Use: none Significant Family History: no pertinent family hx - Physical Exam Vital Signs: Vital Signs - 24 hr Temp Pulse Resp BP Pulse Ox 10/03/21 12:00 98.6 F 72 19 152/70 93 L 10/03/21 08:00 97.3 F 74 21 117/56 91 L 10/03/21 07:48 84 18 95 10/03/21 05:19 86 21 95 10/03/21 04:00 97.9 F 77 16 148/66 94 L 10/02/21 23:59 97.7 F 79 18 153/68 96 10/02/21 19:52 97.3 F 86 18 156/71 98 10/02/21 19:28 81 20 96 10/02/21 17:03 96 10/02/21 16:58 97.2 F 89 20 184/94 98 10/02/21 16:49 97.2 F 89 184/94 98 10/02/21 16:00 76 18 171/103 95 10/02/21 15:00 72 20 172/105 96 10/02/21 14:27 68 20 152/104 95 General Appearance: no apparent distress, other (morbidly obese) Neurologic Exam: alert, oriented x 3, cooperative, normal mood/affect (pleasant) Eye Exam: eyes nml inspection Ears, Nose, Throat Exam: normal ENT inspection Neck Exam: other (thyroid palpable nontender) Respiratory Exam: diminished breath sounds Cardiovascular Exam: regular rate/rhythm Gastrointestinal/Abdomen Exam: soft, normal bowel sounds (nontender) Pelvic Exam: not done Rectal Exam: not done Back Exam: normal inspection Extremity Exam: pedal edema (dressings bilateral feet/ankles - see PT eval), swelling (bilaterall LE knees down,right is S/P knee replacement with surgical tape covering incision which appears to be healing well with good mobility /decreased flexion as expected post op.) Wound Assessment: Skin/Wound Assessment Wound/Incision Assessment Start: 10/02/21 16:39 Text: Status: Active Freq: Q6H Protocol: Document 10/03/21 08:00 (Rec: 10/03/21 08:42 [id number]) Wound/Incision Assessment Right Anterior Knee Wound Assessment Shift Assessment Dressing Status Dry & Intact Drainage Amount None Drainage Odor None/Absent Anterior Foot Wound Assessment Admission Wound Type cellulitis Wound Stage Non Pressure Wound Drainage Amount None Surrounding Tissue Caroleen Comment bilat anterior top of feet and shins red, swollen, and blistered. Results - Labs Lab/Micro Results: Lab Results-Last 24 Hours 10/02/21 10/02/21 10/03/21 Range/Units 16:22 18:10 04:30 WBC (4.0-10.5) x10^3/uL RBC (4.1-5.4) x10^6/uL Hgb (12.0-16.0) g/dL Hct (35-47) % MCV (78-100) fL MCH (26-32) pg MCHC (32-36) g/dL RDW (11.5-14.0) % Plt Count (150-450) x10^3/uL MPV (7.5-11.0) fL Gran % (36.0-66.0) % Immature Gran % (Auto) (0.00-0.4) % Nucleat RBC Rel Count (0.00-0.1) % Eos # (Auto) (0-0.5) x10^3/uL Immature Gran # (Auto) (0.00-0.03) x10^3u/L Absolute Lymphs (auto) (1.0-4.6) x10^3/uL Absolute Monos (auto) (0.0-1.3) x10^3/uL Absolute Nucleated RBC (0.00-0.01) x10^3u/L Lymphocytes % (24.0-44.0) % Monocytes % (0.0-12.0) % Eosinophils % (0.00-5.0) % Basophils % (0.0-0.4) % Absolute Granulocytes (1.4-6.9) x10^3/uL Basophils # (0-0.4) x10^3/uL Sodium (137-145) mmol/L Potassium (3.5-5.1) mmol/L Chloride (98-107) mmol/L Carbon Dioxide (22-30) mmol/L Anion Gap (5-15) MEQ/L BUN (7-17) mg/dL Creatinine (0.52-1.04) mg/dL Estimated GFR ML/MIN Glucose (74-106) mg/dL Lactic Acid (0.4-2.0) Calcium (8.4-10.2) mg/dL Total Bilirubin (0.2-1.3) mg/dL AST (14-36) U/L ALT (0-35) U/L Alkaline Phosphatase (38-126) U/L Troponin I < 0.012 (0.000-0.034) ng/mL Serum Total Protein (6.3-8.2) g/dL Albumin (3.5-5.0) g/dL Vitamin B12 < 159 L (239-931) pg/mL TSH 3rd Generation 12.000 H (0.47-4.68) mIU/L Influenza Type A Ag NEGATIVE (NEGATIVE) Influenza Type B Ag NEGATIVE (NEGATIVE) RSV (PCR) NEGATIVE (Negative) SARS-CoV-2 (PCR) NEGATIVE (NEGATIVE) 10/03/21 10/03/21 10/03/21 Range/Units 04:43 04:43 04:43 WBC 12.6 H (4.0-10.5) x10^3/uL RBC 3.78 L (4.1-5.4) x10^6/uL Hgb 11.0 L (12.0-16.0) g/dL Hct 34.2 L (35-47) % MCV 90.5 (78-100) fL MCH 29.1 (26-32) pg MCHC 32.2 (32-36) g/dL RDW 14.5 H (11.5-14.0) % Plt Count 372 (150-450) x10^3/uL MPV 10.0 (7.5-11.0) fL Gran % 64.2 (36.0-66.0) % Immature Gran % (Auto) 0.4 (0.00-0.4) % Nucleat RBC Rel Count 0.0 (0.00-0.1) % Eos # (Auto) 1.04 H (0-0.5) x10^3/uL Immature Gran # (Auto) 0.05 H (0.00-0.03) x10^3u/L Absolute Lymphs (auto) 2.41 (1.0-4.6) x10^3/uL Absolute Monos (auto) 0.92 (0.0-1.3) x10^3/uL Absolute Nucleated RBC 0.00 (0.00-0.01) x10^3u/L Lymphocytes % 19.1 L (24.0-44.0) % Monocytes % 7.3 (0.0-12.0) % Eosinophils % 8.2 H (0.00-5.0) % Basophils % 0.8 (0.0-0.4) % Absolute Granulocytes 8.10 H (1.4-6.9) x10^3/uL Basophils # 0.10 (0-0.4) x10^3/uL Sodium 133 L (137-145) mmol/L Potassium 4.3 (3.5-5.1) mmol/L Chloride 102 (98-107) mmol/L Carbon Dioxide 28 (22-30) mmol/L Anion Gap 7.6 (5-15) MEQ/L BUN 8 (7-17) mg/dL Creatinine 0.80 (0.52-1.04) mg/dL Estimated GFR > 60.0 ML/MIN Glucose 100 (74-106) mg/dL Lactic Acid 1.3 (0.4-2.0) Calcium 8.6 (8.4-10.2) mg/dL Total Bilirubin 0.50 (0.2-1.3) mg/dL AST 17 (14-36) U/L ALT 14 (0-35) U/L Alkaline Phosphatase 124 (38-126) U/L Troponin I (0.000-0.034) ng/mL Serum Total Protein 6.4 (6.3-8.2) g/dL Albumin 3.2 L (3.5-5.0) g/dL Vitamin B12 (239-931) pg/mL TSH 3rd Generation (0.47-4.68) mIU/L Influenza Type A Ag (NEGATIVE) Influenza Type B Ag (NEGATIVE) RSV (PCR) (Negative) SARS-CoV-2 (PCR) (NEGATIVE) - Radiology Impressions Radiology Exams & Impressions: Radiology Procedures Category Date Time Status CHEST 2 VIEWS (PA AND LAT) Urgent Exams 10/03/21 11:02 Taken CHEST WITH CONTRAST [CT] Urgent Exams 10/03/21 12:31 Ordered VENOUS BILATERAL EXTREMITY [US] Stat Exams 10/02/21 15:05 Completed - Other Procedures and Tests Respiratory Therapy 10/02/21 19:48 Respiratory Therapy Assessment DAILY Assessment/Plan (1) Bilateral lower extremity edema Current Visit: No Status: Acute Code(s): R60.0 - LOCALIZED EDEMA (2) Cellulitis, leg Current Visit: Yes Status: Acute (3) Cellulitis of both feet Current Visit: Yes Status: Acute Code(s): L03.115 - CELLULITIS OF RIGHT LOWER LIMB; L03.116 - CELLULITIS OF LEFT LOWER LIMB (4) Status post right knee replacement Current Visit: Yes Status: Resolved Assessment & Plan: surgery was 09/19/2021,healing well,needs continued PT Code(s): Z96.651 - PRESENCE OF RIGHT ARTIFICIAL KNEE JOINT
--- NOTE | 2021-10-03 15:54 | XRAY ---
Exam: Two-view chest series from 10/03/2021. Comparison: AP upright portable chest film from 08/04/2020. Indication: 61-year-old female with shortness of breath; "rule out PE". Findings: Upright PA and lateral chest films are submitted for evaluation. The heart size is normal. A small epicardial fat-pad is seen at the left cardiophrenic angle. I again see a granulomatous calcification just to the right of the subcarinal region representing no change. This is consistent with old healed granulomatous disease. Mild tortuosity of both the ascending and descending thoracic aorta is seen. The lungs are well inflated. There is a tiny transverse strand of plate atelectasis or linear scarring at the central left lung base. No air space infiltrates, vascular congestion, pneumothorax, or pleural fluid is seen. Mild osteoarthritis is seen within the acromioclavicular joints, right greater than left. Impression: 1. No acute cardiopulmonary disease is seen. This is unchanged from 08/04/2020. 2. Some incidental findings are noted, as discussed above.
--- NOTE | 2021-10-03 17:28 | XRAY ---
Exam: CT Chest PE protocol with IV contrast from 10/03/2021. CTDI: 30.70 mGy Comparison: Two-view chest series from 10/03/2021. Indication: 61-year-old female for rule out pulmonary embolus. Technique: Post IV contrast axial images were obtained through the chest. Automated injection using 100 cc of Isovue 370 contrast was utilized at 4 cc/s. Reconstructed coronal and sagittal images were created and reviewed. Findings: CT of the chest is performed with IV contrast utilizing the pulmonary embolism protocol. Opacification of the distal pulmonary arterial branches is not optimal. However, no definite CT evidence for pulmonary embolism or thoracic aortic dissection is seen. There is a mild retrocardiac hiatal hernia. The heart size is normal without pericardial effusion. No abnormal mediastinal lymphadenopathy is seen. I note some granulomatous calcifications anterior to the right mainstem bronchus. The lungs are clear of focal infiltrate or indeterminate pulmonary nodule. Minimal curvilinear scarring or atelectasis is seen at the posterior medial left lung base. No pneumothorax or pleural effusion is seen. The upper abdomen appears unremarkable. Surgical clips consistent with prior cholecystectomy are seen within the right upper quadrant. Some splenic calcified granulomas are seen. The adrenal glands are normal. Degenerative changes are seen between the manubrium and body of the sternum. Mild diffuse thoracic spondylosis is seen. Impression: 1. No CT evidence of acute pulmonary embolism or thoracic aortic dissection is seen. See above. 2. 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 3. Mild retrocardiac hiatal hernia.
[2021-10-04] MEDS: SUBLIMAZE 100 MCG/2 ML IV PRN ×5 (03:47→22:33)
[2021-10-04] MEDS: VANCOMYCIN 1 GRAM/200 ML BAG 1 GM/200 ML PIGGYBACK IV SCH ×3 (06:43→22:35)
[2021-10-04] MEDS: Lasix 40 MG PO SCH (09:14)
[2021-10-04] MEDS: SYNTHROID 100 MCG PO SCH (09:14)
[2021-10-04] MEDS: Coreg 3.125 MG PO SCH (09:14)
[2021-10-04] MEDS: ENOXAPARIN SODIUM SQ SCH ×2 (09:14→22:33)
[2021-10-04] MEDS: NICODERM CQ 14 MG TOP SCH (09:15)
[2021-10-04] MEDS: PROTONIX 40 MG IV IV SCH (09:16)
[2021-10-04 09:49] LABS: Basophil (Absolute #) 0.09 x10^3/uL (0-0.4); Eosinophil % 7.3 % (0.00-5.0); Eosinophil (Absolute #) 1.03 x10^3/uL (0-0.5); Hematocrit 36.3 % (35-47); Hemoglobin 11.4 g/dL (12.0-16.0); Lymphocyte (Absolute #) 1.73 x10^3/uL (1.0-4.6); Lymphocytes % 12.2 % (24.0-44.0); Mean Cell Volume 92.1 fL (78-100); Mean Corpuscular Hemoglobin 28.9 pg (26-32); Mean Corpuscular Hgb Concent. 31.4 g/dL (32-36); Mean Platelet Volume 9.9 fL (7.5-11.0); Monocyte (Absolute #) 0.95 x10^3/uL (0.0-1.3); Monocytes % 6.7 % (0.0-12.0); Neutrophil % 72.8 % (36.0-66.0); Platelet Count 395 x10^3/uL (150-450); Red Blood Count 3.94 x10^6/uL (4.1-5.4); Red Cell Distribution Width 14.6 % (11.5-14.0); White Blood Count 14.2 x10^3/uL (4.0-10.5)
[2021-10-04] MEDS ORDERED: SYNTHROID 50 MCG PO SCH (10:00)
[2021-10-04 10:02] LABS: ALBUMIN 3.6 g/dL (3.5-5.0); ALKALINE PHOSPHATASE 130 U/L (38-126); ANION GAP 12.1 MEQ/L (5-15); BLOOD UREA NITROGEN 8 mg/dL (7-17); CHLORIDE 101 mmol/L (98-107); Calcium 8.9 mg/dL (8.4-10.2); Carbon Dioxide 26 mmol/L (22-30); EST GLOMERULAR FILTRATION RATE > 60.0 ML/MIN; Glucose 126 mg/dL (74-106); Potassium 3.8 mmol/L (3.5-5.1); SGOT/AST 18 U/L (14-36); SGPT/ALT 14 U/L (0-35); SODIUM 136 mmol/L (137-145)
[2021-10-04] MEDS ORDERED: Cyanocobalamin B-12 1000 MCG/ML SQ ONE (13:00)
--- NOTE | 2021-10-04 13:10 | PCM.NOTE ---
Date and Time: 10/04/21 1305 Subjective Assessment: Patient about the same today -swelling and redness BLE PT dressing open vesicles on feet. Is on Vancomycin-WBC still elevated and higher today TSH is 12.0 on Levothyroxine 100mcg daily. B12 very low <159 . Meds adjusted,start B12 injection. CT Chest negative for PE. No further chest pain or dyspnea. Objective Exam General Appearance: no apparent distress Neurologic Exam: alert, oriented x 3, cooperative Skin Exam: normal color, warm, dry Wound Assessment: Skin/Wound Assessment Wound/Incision Assessment Start: 10/02/21 16:39 Text: Status: Active Freq: Q6H Protocol: Document 10/04/21 07:33 [email or web address] (Rec: 10/04/21 07:39 [email or web address] [id number]) Wound/Incision Assessment Right Anterior Knee Wound Assessment Shift Assessment Dressing Status Dry & Intact Drainage Amount None Drainage Odor None/Absent Anterior Foot Wound Assessment Shift Assessment Wound Type cellulitis Wound Stage Non Pressure Wound Drainage Amount None Surrounding Tissue [place] Comment bilat anterior top of feet and shins red, swollen, and blistered. Respiratory Exam: normal breath sounds Cardiovascular Exam: regular rate/rhythm Extremity Exam: pedal edema (with denuded vesicles -wrapped -dressing dry), swelling (lyphedema with red,tender bilateral LE Right knee surgical scal with linear tape dressing -area surrounding is not red.good movement but decreased flexion.), other OBJECTIVE DATA Vital Signs: Vital Signs - 24 hr Temp Pulse Resp BP Pulse Ox 10/04/21 11:37 97.9 F 93 H 16 172/77 95 10/04/21 07:29 98.0 F 80 16 134/67 95 10/04/21 07:01 80 16 95 10/04/21 04:00 97.1 F 83 16 139/63 93 L 10/03/21 23:24 97.8 F 82 16 137/63 94 L 10/03/21 19:20 81 16 95 10/03/21 18:50 98.6 F 92 H 17 159/75 95 10/03/21 16:00 98.6 F 82 19 193/76 94 L Pain Assessment - Last Documented Pain Intensity 5 Pain Scale Used 0-10 Pain Scale Intake and Output: Intake & Output 10/02/21 10/03/21 10/04/21 10/05/21 11:59 11:59 11:59 11:59 Intake Total 1440 2180 Output Total 2800 3350 Balance -1360 -1170 Weight 129.3 kg Lab Results: Lab Results-Last 24 Hours 10/04/21 10/04/21 Range/Units 09:25 09:25 WBC 14.2 H (4.0-10.5) x10^3/uL RBC 3.94 L (4.1-5.4) x10^6/uL Hgb 11.4 L (12.0-16.0) g/dL Hct 36.3 (35-47) % MCV 92.1 (78-100) fL MCH 28.9 (26-32) pg MCHC 31.4 L (32-36) g/dL RDW 14.6 H (11.5-14.0) % Plt Count 395 (150-450) x10^3/uL MPV 9.9 (7.5-11.0) fL Gran % 72.8 H (36.0-66.0) % Immature Gran % (Auto) 0.4 (0.00-0.4) % Nucleat RBC Rel Count 0.0 (0.00-0.1) % Eos # (Auto) 1.03 H (0-0.5) x10^3/uL Immature Gran # (Auto) 0.05 H (0.00-0.03) x10^3u/L Absolute Lymphs (auto) 1.73 (1.0-4.6) x10^3/uL Absolute Monos (auto) 0.95 (0.0-1.3) x10^3/uL Absolute Nucleated RBC 0.00 (0.00-0.01) x10^3u/L Lymphocytes % 12.2 L (24.0-44.0) % Monocytes % 6.7 (0.0-12.0) % Eosinophils % 7.3 H (0.00-5.0) % Basophils % 0.6 (0.0-0.4) % Absolute Granulocytes 10.30 H (1.4-6.9) x10^3/uL Basophils # 0.09 (0-0.4) x10^3/uL Sodium 136 L (137-145) mmol/L Potassium 3.8 (3.5-5.1) mmol/L Chloride 101 (98-107) mmol/L Carbon Dioxide 26 (22-30) mmol/L Anion Gap 12.1 (5-15) MEQ/L BUN 8 (7-17) mg/dL Creatinine 0.80 (0.52-1.04) mg/dL Estimated GFR > 60.0 ML/MIN Glucose 126 H (74-106) mg/dL Calcium 8.9 (8.4-10.2) mg/dL Total Bilirubin 0.40 (0.2-1.3) mg/dL AST 18 (14-36) U/L ALT 14 (0-35) U/L Alkaline Phosphatase 130 H (38-126) U/L Serum Total Protein 7.0 (6.3-8.2) g/dL Albumin 3.6 (3.5-5.0) g/dL Radiology Exams: Radiology Procedures Category Date Time Status CHEST 2 VIEWS (PA AND LAT) Urgent Exams 10/03/21 11:02 Completed CHEST WITH CONTRAST [CT] Urgent Exams 10/03/21 16:40 Completed VENOUS BILATERAL EXTREMITY [US] Stat Exams 10/02/21 15:05 Completed Multi-Disciplinary Progress Notes: Multi-Disciplinary Progress Notes 10/03/21 16:37 Occupational Therapy Note by Dionicio(L#[id number])Gladis 10/03/2021: Occupational Therapy Evaluation completed this date. Please see OT Evaluation for details. Will see patient 1x/day to address functional strength, AE/AD training, and I/ADLs. Initialized on 10/03/21 16:37 - END OF NOTE Assessment/Plan (1) Cellulitis Current Visit: Yes Status: Acute Qualifiers: Site of cellulitis of extremity: lower extremity Laterality: left Assessment & Plan: is on Vanc -adding Levaquin due to WBC up from yesterday. Code(s): L03.90 - CELLULITIS, UNSPECIFIED (2) Leukocytosis Current Visit: Yes Status: Acute Code(s): D72.829 - ELEVATED WHITE BLOOD CELL COUNT, UNSPECIFIED (3) B12 deficiency Current Visit: Yes Status: Acute Assessment & Plan: B12 < 159- very low - injection Cyanocobalamin 2,000 IU today x 1 Code(s): E53.8 - DEFICIENCY OF OTHER SPECIFIED B GROUP VITAMINS (4) Hypothyroid Current Visit: Yes Status: Chronic Assessment & Plan: TSH = 12 on current Levothyroxine 100mcg- increased to 125mcg daily (given total 150mcg today) Code(s): E03.9 - HYPOTHYROIDISM, UNSPECIFIED
[2021-10-04] MEDS ORDERED: SYNTHROID 50 MCG PO ONE (13:30)
[2021-10-05] MEDS: VENTOLIN COMMON CANISTER IH PRN (06:56)
[2021-10-05] MEDS: SYNTHROID 125 MCG PO SCH (07:21)
[2021-10-05] MEDS: SUBLIMAZE 100 MCG/2 ML IV PRN ×4 (07:39→22:29)
[2021-10-05] MEDS ORDERED: TROUGH DRUG LEVELS IJ ONE (09:30)
[2021-10-05] MEDS: Levofloxacin 500MG/100ML D5W 500 MG/100 ML BAG IV SCH (09:38)
[2021-10-05] MEDS: Coreg 3.125 MG PO SCH (09:39)
[2021-10-05] MEDS: Lasix 40 MG PO SCH (09:39)
[2021-10-05] MEDS: ENOXAPARIN SODIUM SQ SCH ×2 (09:40→22:29)
[2021-10-05] MEDS: NICODERM CQ 14 MG TOP SCH (09:40)
[2021-10-05] MEDS: PROTONIX 40 MG IV IV SCH (09:42)
[2021-10-05] MEDS: VANCOMYCIN 1 GRAM/200 ML BAG 1 GM/200 ML PIGGYBACK IV SCH ×2 (11:42→22:29)
[2021-10-06] MEDS: SUBLIMAZE 100 MCG/2 ML IV PRN ×4 (03:41→19:49)
[2021-10-06 05:28] LABS: Absolute Neutrophil Ct (ANC) 7.42 x10^3/uL (1.4-6.9); Basophil (Absolute #) 0.11 x10^3/uL (0-0.4); Eosinophil % 9.1 % (0.00-5.0); Eosinophil (Absolute #) 1.07 x10^3/uL (0-0.5); Hematocrit 33.3 % (35-47); Hemoglobin 10.5 g/dL (12.0-16.0); Lymphocyte (Absolute #) 2.27 x10^3/uL (1.0-4.6); Lymphocytes % 19.3 % (24.0-44.0); Mean Corpuscular Hemoglobin 28.7 pg (26-32); Mean Corpuscular Hgb Concent. 31.5 g/dL (32-36); Mean Platelet Volume 9.8 fL (7.5-11.0); Monocyte (Absolute #) 0.84 x10^3/uL (0.0-1.3); Monocytes % 7.1 % (0.0-12.0); Neutrophil % 63.2 % (36.0-66.0); Platelet Count 365 x10^3/uL (150-450); Red Blood Count 3.66 x10^6/uL (4.1-5.4); White Blood Count 11.8 x10^3/uL (4.0-10.5)
[2021-10-06 05:59] LABS: ANION GAP 10.4 MEQ/L (5-15); BLOOD UREA NITROGEN 7 mg/dL (7-17); CHLORIDE 100 mmol/L (98-107); Calcium 8.6 mg/dL (8.4-10.2); Carbon Dioxide 26 mmol/L (22-30); Creatinine 1 0.77 mg/dL (0.52-1.04); EST GLOMERULAR FILTRATION RATE > 60.0 ML/MIN; Glucose 154 mg/dL (74-106); Potassium 3.5 mmol/L (3.5-5.1); SODIUM 132 mmol/L (137-145)
[2021-10-06] MEDS: VENTOLIN COMMON CANISTER IH PRN ×2 (07:16→18:43)
[2021-10-06] MEDS: SYNTHROID 125 MCG PO SCH (07:42)
[2021-10-06] MEDS: Lasix 40 MG PO SCH (08:27)
[2021-10-06] MEDS: Coreg 3.125 MG PO SCH (08:27)
[2021-10-06] MEDS: NICODERM CQ 14 MG TOP SCH (08:34)
[2021-10-06] MEDS: PROTONIX 40 MG IV IV SCH (08:34)
[2021-10-06] MEDS: ENOXAPARIN SODIUM SQ SCH ×3 (08:34→21:13)
[2021-10-06] MEDS: Levofloxacin 500MG/100ML D5W 500 MG/100 ML BAG IV SCH (08:34)
[2021-10-06] MEDS ORDERED: Zofran 4 MG/2 ML VIAL IV PRN (09:30)
[2021-10-06] MEDS: VANCOMYCIN 1 GRAM/200 ML BAG 1 GM/200 ML PIGGYBACK IV SCH ×2 (10:23→21:14)
[2021-10-06] MEDS: NORCO 5/325 MG PO PRN ×3 (10:25→23:24)
[2021-10-07] MEDS: VENTOLIN COMMON CANISTER IH PRN (01:39)
[2021-10-07] MEDS: SUBLIMAZE 100 MCG/2 ML IV PRN ×2 (04:17→07:52)
[2021-10-07 05:30] LABS: Hematocrit 33.6 % (35-47); Hemoglobin 10.7 g/dL (12.0-16.0); Mean Cell Volume 91.1 fL (78-100); Mean Corpuscular Hgb Concent. 31.8 g/dL (32-36); Mean Platelet Volume 9.7 fL (7.5-11.0); Platelet Count 382 x10^3/uL (150-450); Red Blood Count 3.69 x10^6/uL (4.1-5.4); White Blood Count 9.3 x10^3/uL (4.0-10.5)
[2021-10-07 05:51] LABS: ANION GAP 10.1 MEQ/L (5-15); BLOOD UREA NITROGEN 8 mg/dL (7-17); CHLORIDE 101 mmol/L (98-107); Calcium 8.9 mg/dL (8.4-10.2); Carbon Dioxide 26 mmol/L (22-30); Creatinine 1 0.79 mg/dL (0.52-1.04); EST GLOMERULAR FILTRATION RATE > 60.0 ML/MIN; Glucose 120 mg/dL (74-106); Potassium 3.7 mmol/L (3.5-5.1); SODIUM 133 mmol/L (137-145)
[2021-10-07] MEDS: NORCO 5/325 MG PO PRN (06:31)
[2021-10-07] MEDS: SYNTHROID 125 MCG PO SCH (06:31)
[2021-10-07] MEDS: ENOXAPARIN SODIUM SQ SCH (09:25)
[2021-10-07] MEDS: Coreg 3.125 MG PO SCH (09:25)
[2021-10-07] MEDS: Levofloxacin 500MG/100ML D5W 500 MG/100 ML BAG IV SCH (09:25)
[2021-10-07] MEDS: VANCOMYCIN 1 GRAM/200 ML BAG 1 GM/200 ML PIGGYBACK IV SCH (09:26)
[2021-10-07] MEDS: NICODERM CQ 14 MG TOP SCH (09:26)
[2021-10-07] MEDS: Lasix 40 MG PO SCH (09:26)
[2021-10-07] MEDS: PROTONIX 40 MG IV IV SCH (09:27)
[2021-10-07 11:24] VITALS: BP 136/65
--- NOTE | 2021-10-07 13:12 | PCM.DCORD ---
- Discharge Disposition: HOME HEALTH SERVICE Condition: Stable Prescriptions: New Levofloxacin [Levofloxacin 500 MG Tablet] 500 mg PO DAILY #7 tablet Mecobalamin [B12 Active] 1,000 mcg PO DAILY #30 tab.chew Continue Levothyroxine Sodium 50 Mcg [Synthroid 50 Mcg] 100 mcg PO DAILY Albuterol Sulfate [Albuterol Sulfate Hfa] 2 puff IH Q4-6HPRN PRN #1 hfa.aer.ad PRN Reason: cough or wheeze Carvedilol 3.125 mg [Coreg 3.125 MG] 3.125 mg PO DAILY Potassium Chloride [K-Tab ER] 8 meq PO DAILY PRN PRN Reason: Muscle Spasms Aspirin EC 325 mg [Ecotrin 325 MG] 325 mg PO DAILY Furosemide 40 mg [Lasix 40 MG] 40 mg PO DAILY Hydrocodone/Acetaminophen [Hydrocodone-Acetamin 10-325 mg] 1 each PO Q4H PRN PRN Reason: Pain Outpatient Orders: Physical Therapy Eval & Treat Facility: [facility], Location: PHYSICAL THERAPY Instructions: Cellulitis (Skin Infection), Adult (DC) Additional Instructions: KEEP YOUR NEXT APPOINTMENT WITH [facility] PHYSICAL TH[facility]APY ON SUNDAY AT 11 Follow up with: ZAHRAA COSME [Primary Care Provider] - 10/14/21 11:15 am Forms: Discharge Instructions
[2021-10-07 13:20] VITALS: PULSE 72; O2SAT 94
--- NOTE | 2021-10-07 13:27 | PCM.DS ---
Discharge Summary Date of Admission: 10/04/21 13:05 Date of Discharge: 10/07/2021 Admitting Physician: CARMEN LISA DO Primary Care Provider: ZAHRAA COSME Allergies Allergies penicillin G Allergy (Intermediate, Verified 08/04/20 13:03) CAN'T MOVE Sulfa (Sulfonamide Antibiotics) Allergy (Intermediate, Verified 08/04/20 13:03) Hives cephalexin [From Keflex] Adverse Reaction (Intermediate, Verified 08/04/20 13:03) nausea/vomiting Hospital Summary - Hospital Course Hospital Course: Patient is a 61 yr old morbidly obese female who developed ulcers dorsum bilateral feet with edema and pain bilat LE, ER eval neg for DVT . Right knee replacement 09/19/21 with healing of surgical wound and good ROM for post op. Elevated D-dime of 3.0 some chest discomfort and dyspnea-one time during hosp stay and CT chest was neg for PE,normal Troponins. HYpothyoid taking Levothyroxine 100mcg daily but TSH = 12.0 and dose increased to 125mcg to be followed as outpatient. B12 <159 and 2,000 IU cyanocobalamin injection was given. - Vitals & Intake/Output Vital Signs: Vital Signs Temperature 98.0 F 10/07/21 11:23 Pulse Rate 78 10/07/21 11:23 Respiratory Rate 16 10/07/21 11:23 Blood Pressure 136/65 10/07/21 11:23 O2 Sat by Pulse Oximetry 97 10/07/21 11:23 Intake & Output: Intake & Output 10/05/21 10/06/21 10/07/21 10/08/21 11:59 11:59 11:59 11:59 Intake Total 1200 1420 960 Output Total 1000 2700 3500 Balance 200 -1280 -2540 - Lab Result Diagrams: 10/07/21 05:10 10/07/21 05:10 Lab Results-Last 24 Hrs: Lab Results-Last 24 Hours 10/07/21 10/07/21 Range/Units 05:10 05:10 WBC 9.3 (4.0-10.5) x10^3/uL RBC 3.69 L (4.1-5.4) x10^6/uL Hgb 10.7 L (12.0-16.0) g/dL Hct 33.6 L (35-47) % MCV 91.1 (78-100) fL MCH 29.0 (26-32) pg MCHC 31.8 L (32-36) g/dL RDW 14.0 (11.5-14.0) % Plt Count 382 (150-450) x10^3/uL MPV 9.7 (7.5-11.0) fL Sodium 133 L (137-145) mmol/L Potassium 3.7 (3.5-5.1) mmol/L Chloride 101 (98-107) mmol/L Carbon Dioxide 26 (22-30) mmol/L Anion Gap 10.1 (5-15) MEQ/L BUN 8 (7-17) mg/dL Creatinine 0.79 (0.52-1.04) mg/dL Estimated GFR > 60.0 ML/MIN Glucose 120 H (74-106) mg/dL Calcium 8.9 (8.4-10.2) mg/dL Micro Results-Entire Visit: Microbiology 10/02/21 15:45 Blood Culture Gram Stain - Final Blood Not Reportable Blood Culture - Final NO GROWTH 10/02/21 13:25 Blood Culture Gram Stain - Final Blood Not Reportable Blood Culture - Final NO GROWTH - Procedures and Test Procedures and Tests throughout Hospitalization: Therapy Orders & Screens 10/02/21 19:48 Respiratory Therapy Assessment DAILY Comment: Diagnosis: bilat. LE cellulitis 10/03/21 08:00 OT Screen per Nursing Assess ONCE Comment: Protocol Order Physician Instructions: Greater than 3 points order OT Admission Screening Reason For Exam: Triggered on Admission Diagnosis: bilat. LE cellulitis Open Wound/Cellutlitis/Pressure Ulcers: Yes Acute Fx/ORIF/Change in wt bearing status: No Severe MUSCULOSKELETAL pain: Yes ADL Dysfunction: Yes Acute CVA w/Hemiparesis/Hemiplegia: No Decreased Functional Mobility/Strength: Yes Sprain/Strain: No Acute Post-op Mobility Dysfunction: Yes Total Points: 17 PT Screen per Nursing Assess ONCE Comment: Protocol Order Physician Instructions: Greater than 3 points order PT Admission Screenin Reason For Exam: Triggered on Admission Diagnosis: bilat. LE cellulitis Open Wound/Cellutlitis/Pressure Ulcers: Yes Acute Fx/ORIF/Change in wt bearing status: No Severe MUSCULOSKELETAL pain: Yes ADL Dysfunction: Yes Acute CVA w/Hemiparesis/Hemiplegia: No Decreased Functional Mobility/Strength: Yes Sprain/Strain: No Acute Post-op Mobility Dysfunction: Yes Total Points: 17 RT Screen per Nursing Assess ONCE Comment: Protocol Order Physician Instructions: Greater than 3 points order RT Admission Screen Reason For Exam: Triggered on Admission Diagnosis: bilat. LE cellulitis Diagnosis: bilat. LE cellulitis Pneumonia: No Home O2: No Asthma: Yes CHF: No Home CPAP/BIPAP: No Home Nebs/MDI: Yes Total Points: 9 Smoking Cessation Education ONCE Comment: Diagnosis: bilat. LE cellulitis Smoking Status: Current every day smoker How long have you smoked: years Have you smoked in the past 12 months: Yes Approximately how many cigarettes per day: 1 ppd Do you dip or chew tobacco: No 10/03/21 14:16 OT Eval and Treat (MD Order) ONCE Comment: Consulting Provider: Physician Instructions: Reason For Exam: Diagnosis: bilat. LE cellulitis 10/03/21 14:26 PT Eval & Treat (MD Order) 1-3XD Reason for Eval:: right knee rehab needed due to recent knee replacement Diagnosis: bilat. LE cellulitis Discharge Exam Wound Assessment: Skin/Wound Assessment Wound/Incision Assessment Start: 10/02/21 16:39 Text: Status: Active Freq: Q6H Protocol: Document 10/07/21 08:00 AW (Rec: 10/07/21 08:49 AW [id number]) Wound/Incision Assessment Right Anterior Knee Wound Assessment Shift Assessment Wound Type Incision Wound Stage Non Pressure Wound Dressing Status Dry & Intact Drainage Amount None Drainage Odor None/Absent General Appearance Well Approximated Anterior Foot Wound Assessment Shift Assessment Wound Type cellulitis Wound Stage Non Pressure Wound Drainage Amount None Comment DRESSING IN PLACE- APPEARS C/D /I Wound Photo Photo Taken No Comment: . Final Diagnosis/Problem List - Final Discharge Diagnosis/Problem (1) Bilateral lower extremity edema Current Visit: No Status: Acute Code(s): R60.0 - LOCALIZED EDEMA (2) Cellulitis, leg Current Visit: Yes Status: Resolved (3) Cellulitis of both feet Current Visit: Yes Status: Acute Code(s): L03.115 - CELLULITIS OF RIGHT LOWER LIMB; L03.116 - CELLULITIS OF LEFT LOWER LIMB (4) Status post right knee replacement Current Visit: Yes Status: Resolved Code(s): Z96.651 - PRESENCE OF RIGHT ARTIFICIAL KNEE JOINT - Discharge Disposition: HOME HEALTH SERVICE Condition: Stable Prescriptions: New Levofloxacin [Levofloxacin 500 MG Tablet] 500 mg PO DAILY #7 tablet Mecobalamin [B12 Active] 1,000 mcg PO DAILY #30 tab.chew Continue Levothyroxine Sodium 50 Mcg [Synthroid 50 Mcg] 100 mcg PO DAILY Albuterol Sulfate [Albuterol Sulfate Hfa] 2 puff IH Q4-6HPRN PRN #1 hfa.aer.ad PRN Reason: cough or wheeze Carvedilol 3.125 mg [Coreg 3.125 MG] 3.125 mg PO DAILY Potassium Chloride [K-Tab ER] 8 meq PO DAILY PRN PRN Reason: Muscle Spasms Aspirin EC 325 mg [Ecotrin 325 MG] 325 mg PO DAILY Furosemide 40 mg [Lasix 40 MG] 40 mg PO DAILY Hydrocodone/Acetaminophen [Hydrocodone-Acetamin 10-325 mg] 1 each PO Q4H PRN PRN Reason: Pain Outpatient Orders: Physical Therapy Eval & Treat Facility: [facility], Location: PHYSICAL THERAPY Instructions: Cellulitis (Skin Infection), Adult (DC) Additional Instructions: KEEP YOUR NEXT APPOINTMENT WITH [facility] ON SUNDAY AT 11 Follow up with: ZAHRAA COSME [Primary Care Provider] - 10/14/21 11:15 am Forms: Discharge Instructions
== END 2021-10-07 13:15 | disposition home health service (06) | DRG 948 ==
LOC: ED 12:21 → MED SURG 16:36 → OBSVTOIN 10-04 13:05
PROVIDERS: ADMIT Family Medicine; ATTEND Family Medicine
DX: R60.0 Localized edema (principal); L03.116 Cellulitis of left lower limb; L03.115 Cellulitis of right lower limb; R07.9 Chest pain, unspecified; R06.00 Dyspnea, unspecified; I10 Essential (primary) hypertension; E03.9 Hypothyroidism, unspecified; D72.89 Other specified disorders of white blood cells; E53.8 Deficiency of other specified B group vitamins; Z96.651 Presence of right artificial knee joint; Z79.899 Other long term (current) drug therapy; Z20.828 Contact with and (suspected) exposure to other viral communicable diseases; Z72.0 Tobacco use
CPT/HCPCS: 0241U; 29580; 29581; 36000; 36415; 71046; 71260; 80048; 80053; 80202; 82607; 83605; 83880; 84436; 84443; 84481; 84484; 85025; 85027; 85379; 87040; 93970; 94640; 94760; 96365; 96374; 97110; 97161; 97166; 97530; 97597; 99284; A6457; G0378; J1650; J1885; J1956; J3010; J3420; A9270-GY; J3370